=== PATIENT | male | born 1950 | race Hispanic/Latino ===

== ENCOUNTER → 2018-03-07 | Outpatient (CLI) | payer MEDICARE, MEDICAID ==
[2018-03-07 22:16] LABS: BILIRUBIN,URINE NEGATIVE (NEGATIVE); UROBILINOGEN,URINE NORMAL (NEGATIVE)
[2018-03-07 22:19] LABS: APPEARANCE,URINE CLEAR (CLEAR); UA COLOR YELLOW (YELLOW)
== END | disposition home or self-care (01) ==
LOC: NPLAB 21:53
PROVIDERS: ATTEND Internal Medicine
DX: N39.0 Urinary tract infection, site not specified (principal)
CPT/HCPCS: 81002

== ENCOUNTER 2018-06-05 22:00 | Emergency (ER) | payer MEDICARE, MEDICAID ==
[~2018-06-05] VITALS: Ht 165.1 cm; Wt 61.2 kg
[2018-06-05] MEDS ORDERED: BOOSTRIX TDAP IM ONE ×2 (22:56→23:00)
--- NOTE | 2018-06-05 22:59 | ER.PDOC ---
General Chief Complaint: Requesting Medical Care Stated Complaint: FALL Time seen by MD: 22:56 Source: EMS, EMS notes reviewed Exam Limitations: clinical condition History of Present Illness Initial Comments Laceration to forehead S/P fall. Patient has dementia. [facility] Severity: moderate Injuries/Pain Location: head, face Context: Unknown Loss of Consciousness: Unsure Associated Symptoms: denies symptoms Past Medical History Medical History: other (Dementia) Review of Systems Constitutional: no symptoms reported Respiratory: no symptoms reported Cardiovascular: no symptoms reported Gastrointestinal: no symptoms reported Genitourinary: no symptoms reported Skin: see HPI All Other Systems: Reviewed and Negative Physical Exam General Appearance: No Apparent Distress, WD/WN Head: Lacerations (forehead) Ears, Nose, Mouth, Throat: Hearing Grossly Normal, Other (contusion nose) Neck: Non-Tender, Normal Alignment, Nexus criteria neg, Normal Inspection Cardiovascular/Respiratory: Regular Rate, Rhythm, No M/R/G, Normal Peripheral Pulses, No JVD, Normal Breath Sounds, No Respiratory Distress Gastrointestinal: Normal Bowel Sounds, No Organomegaly, No Pulsatile Mass, Non Tender, Soft Back: Normal Inspection, No CVA Tenderness, No Vertebral Tenderness Extremities: No Evidence of Injury, Normal Range of Motion, Non-Tender, No Pedal Edema Neurologic/Psychiatric: food quality tester II-XII NML as Tested Skin: Normal Color Reshma Coma Score Best Eye Response: (4) Open Spontaneously Best Verbal Response: (5) Oriented Best Motor Response: (6) Obeys Commands ED LACERATION WOUND REPAIR # of Wounds/Lacerations Presen: 2 Wound Location & Length (Requi: Forehead Wound Length (cm): 5 Wound cleaned: betadine Anesthesia: 1% Lidocaine Volume Anesthetic (ccs): 10 Wound's Depth, Shape: irregular Irrigated w/ Saline (ccs): 40 Wound Repaired With: sutures Suture Size/Type: 5:0, ethilon Suture Style: interupted Number of Sutures: 8 Sterile Dressing Applied?: Yes Results/Orders Results/Orders Laboratory Tests Test 06/05/18 22:40 06/05/18 22:56 Urine Collection Type VOID Urine Color YELLOW (YELLOW) Urine Appearance CLEAR (CLEAR) Urine Bilirubin NEGATIVE MG/DL (NEGATIVE) Urine Ketones NEGATIVE (NEGATIVE) Urine Specific [place] 1.010 (1.005-1.035) Urine pH 6 (5.0-6.0) Urine Protein NEGATIVE (NEGATIVE) Urine Urobilinogen NORMAL (NEGATIVE) Urine Nitrate NEGATIVE (NEGATAIVE) Urine Leukocyte Esterase NEGATIVE (NEGATIVE) Urine Blood 50 2+ (NEGATIVE) Urine RBC 0-2 RBC/HPF (NONE SEEN) Urine WBC 0-2 WBC/HPF (0-2) Urine Squamous Epithelial Cells RARE #/HPF (FEW) Urine Bacteria NONE SEEN (NONE SEEN) Urine Glucose NORMAL (NEGATIVE) White Blood Count 7.6 10^3/uL (4.5-11.0) Red Blood Count 3.65 10^6/uL (4.50-5.90) Hemoglobin 11.5 g/dL (13.9-16.3) Hematocrit 33.9 % (37.0-53.0) Mean Corpuscular Volume 92.9 fL (78-100) Mean Corpuscular Hemoglobin 31.5 pg (26-34) Mean Corpuscular Hemoglobin Concent 33.9 g/dL (33-37) Red Cell Distribution Width 13.5 % (11.5-14.5) Platelet Count 287 10^3/uL (150-400) Mean Platelet Volume 9.3 fL (7.8-11.0) Neutrophils (%) (Auto) 58.6 % (41.0-85.0) Lymphocytes (%) (Auto) 26.5 % (24.0-44.0) Monocytes (%) (Auto) 11.2 % (5.0-12.0) Neutrophils # (Auto) 4.5 10^3/uL (1.8-7.7) Lymphocytes # (Auto) 2.0 10^3/uL (1.0-4.8) Monocytes # (Auto) 0.9 10^3/uL (0.3-0.8) Absolute Immature Granulocyte (auto 0.01 10^3 u/L (0-2) Eosinophils % 3.2 % (0.0-5.0) Basophils % 0.4 % (0.0-0.2) Basophils # 0.0 10^3/uL (0.0-0.1) Eosinophil Count 0.2 10^3/uL (0.0-0.2) Sodium Level 135 mmol/L (132-145) Potassium Level 3.9 mmol/L (3.6-5.2) Chloride Level 101.0 mmol/L (96-109) Carbon Dioxide Level 27.8 mmol/L (20.0-32) Anion Gap 10.1 Blood Urea Nitrogen 14 mg/dL (7-18) Creatinine 1.05 mg/dL (0.59-1.40) Estimated GFR () 84.5 (>/=60) BUN/Creatinine Ratio 13.0 Glucose Level 128 mg/dL (70-110) Calcium Level 9.0 mg/dL (8.4-10.5) Total Bilirubin 0.2 mg/dL (0.2-1.0) Aspartate Amino Transf (AST/SGOT) 12 U/L (0-35) Alanine Aminotransferase (ALT/SGPT) 18 U/L (12-78) Alkaline Phosphatase 177 U/L (50-136) Total Creatine Kinase 56 U/L (39-308) Troponin I < 0.02 ng/mL (0.00-0.05) Total Protein 7.4 g/dL (6.4-8.2) Albumin 3.9 g/dL (3.4-5.0) Globulin 3.5 Percent Immature Gran (Cell Imm) 0.10 % (0.00-0.50) Progress Progress CT shows fracture of left nasal bone, nothing acute intracranially, No fracture of C spine. Departure Time of Disposition: 23:57 Disposition: 01 HOME, SELF-CARE Impression: Primary Impression: Laceration of head Additional Impressions: Nasal bones, closed fracture Facial contusion Fall Condition: Stable Referrals: RICHY PIERRE MD (PCP) PRIMARY CARE PROVIDER Additional Instructions: Apply Neosporin daily Keflex Remove sutures in 7 days at your PCP F/U with ENT next week Duration or Time Spent with Pa: 60 mins Problem Qualifiers Primary Impression: Laceration of head Encounter type: initial encounter Location of open wound of head: unspecified part of head Foreign body presence: without foreign body Qualified Codes: S01.91XA - Laceration without foreign body of unspecified part of head, initial encounter Additional Impressions: Nasal bones, closed fracture Encounter type: initial encounter Qualified Codes: S02.2XXA - Fracture of nasal bones, initial encounter for closed fracture Facial contusion Encounter type: initial encounter Qualified Codes: S00.83XA - Contusion of other part of head, initial encounter Fall Encounter type: initial encounter Qualified Codes: W19.XXXA - Unspecified fall, initial encounter GWENDOLYN,BABAK Henderson MD Jun 05, 2018 22:59
[2018-06-05 23:05] LABS: BASOPHIL % 0.4 % (0.0-0.2); EOSINOPHIL # 0.2 10^3/uL (0.0-0.2); EOSINOPHIL % 3.2 % (0.0-5.0); HEMOGLOBIN 11.5 g/dL (13.9-16.3); LYMPHOCYTES % 26.5 % (24.0-44.0); MEAN CELL HGB 31.5 pg (26-34); MEAN CELL HGB CONCENTRATION 33.9 g/dL (33-37); MEAN CORP VOLUME 92.9 fL (78-100); MEAN PLATELET VOLUME 9.3 fL (7.8-11.0); MONOCYTES # 0.9 10^3/uL (0.3-0.8); MONOCYTES % 11.2 % (5.0-12.0); NEUTROPHIL # 4.5 10^3/uL (1.8-7.7); NEUTROPHILS % 58.6 % (41.0-85.0); RED CELL DISTRIBUTION WIDTH 13.5 % (11.5-14.5); WHITE BLOOD CELL 7.6 10^3/uL (4.5-11.0)
[2018-06-05 23:17] LABS: APPEARANCE,URINE CLEAR (CLEAR); BILIRUBIN,URINE NEGATIVE (NEGATIVE); UA COLOR YELLOW (YELLOW); UROBILINOGEN,URINE NORMAL (NEGATIVE)
[2018-06-05] MEDS ORDERED: LIDOCAINE 1% VIAL ONE (23:23)
[2018-06-05 23:28] LABS: ALANINE AMINOTRANSFERASE(ML) 18 U/L (12-78); ALKALINE PHOSPHATASE 177 U/L (50-136); ASPARTATE AMINO TRANSFERASE 12 U/L (0-35); CARBON DIOXIDE 27.8 mmol/L (20.0-32); GLUCOSE 128 mg/dL (70-110)
--- NOTE | 2018-06-05 23:38 | DIREP ---
PROCEDURE: CT SPINE CERVICAL W/O COMPARISON:None. INDICATIONS:Pain S/P fall FINDINGS: Degenerative changes, especially C1-2. There is subchondral cyst formation, osteophyte, without significant pannus formation. No fractures identified. CERVICAL DISC LEVELS C2-C3:Disc degenerative change with disc protrusion. Midline sagittal diameter is 8 mm. C3-C4:Disc degenerative change with disc protrusion. There is disc height loss. Midline sagittal diameter 8 mm. Facet sclerosis and hypertrophy, with moderate right-sided neural foraminal narrowing C4-C5:Small broad-based disc bulge without significant stenosis. Moderate left sided facet sclerosis and hypertrophy C5-C6:Mild facet sclerosis and hypertrophy, left greater than right C6-C7:Normal. C7-T1:Normal. CONCLUSION:No acute fracture identified. Degenerative changes as above. There is disc protrusion, with moderate spinal stenosis at C2-3 and C3-4. This appears chronic. Mild neural foraminal narrowing narrowing as above Dictated by: Sky Jose MD on 06/05/2018 at 11:33 PM
--- NOTE | 2018-06-05 23:40 | DIREP ---
PROCEDURE:CT MAXILLOFACIAL W/O CONTRAST COMPARISON:None. INDICATIONS:Pain from falling TECHNIQUE:Axial CT images were created without intravenous contrast. Sagittal and coronal reformatted images are provided. FINDINGS: ORBITS:The globe is intact. No extraocular muscle entrapment is identified. No acute orbital wall fracture is identified. There is an old fracture of the medial wall.. FACIAL BONES:No fracture. NASAL BONES :Mildly displaced fractures involving the nasal bones, left greater than right. MANDIBLE:No fracture. SINUSES:No air fluid level is seen. No mucosal thickening. Surrounding bone structures are intact. SOFT TISSUES:Soft tissue swelling and laceration overlying the forehead CONCLUSION:Fracture of the left nasal bones, soft tissue injury overlying the forehead. Old fracture involving the medial wall of right orbit Dictated by: Sky Jose MD on 06/05/2018 at 11:36 PM
--- NOTE | 2018-06-05 23:42 | DIREP ---
PROCEDURE:CT HEAD OR BRAIN W/O CONTRAST COMPARISON:None. INDICATIONS:Pain S/P fall TECHNIQUE:CT images were created without intravenous contrast. FINDINGS: VENTRICLES:There is moderate prominence of the ventricles and cortical sulci consistent with age related involutional changes. CEREBRUM:Small foci of diminished attenuation in the supratentorial white matter consistent with mild leukoaraiosis. CEREBELLUM:Negative. BRAINSTEM:Negative. BASAL CISTERNS:Negative. HEMORRHAGE:No MASS LESION:No ACUTE INFARCT:No SKULL:Normal. SINUSES:Normal. OTHER:See separate report, the soft tissue swelling and laceration of the forehead CONCLUSION:No acute intracranial findings. Atrophy and white matter disease. Dictated by: Sky Jose MD on 06/05/2018 at 11:39 PM
--- NOTE | 2018-06-05 23:57 | NUR ---
[facility] Nargis Dutton from [facility] on phone, notified her of patient ready to be picked up due to discharge from the ED. 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 She will notify us when they leave their facility
--- NOTE | 2018-06-06 00:46 | NUR ---
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
--- NOTE | 2018-06-06 01:31 | NUR ---
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
--- NOTE | 2018-06-06 02:02 | NUR ---
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 Patient is in stable condition at this time.
[2018-06-06 02:09] VITALS: BP 137/76
--- NOTE | 2018-06-06 02:53 | PCM.EKG ---
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
== END 2018-06-06 00:48 | disposition home or self-care (01) ==
LOC: ER 22:00
DX: S02.2XXA Fracture of nasal bones, initial encounter for closed fracture (principal); S01.81XA Laceration without foreign body of other part of head, initial encounter; F03.90 Unspecified dementia, unspecified severity, without behavioral disturbance, psychotic disturbance, mood disturbance, and anxiety; W19.XXXA Unspecified fall, initial encounter; Y93.89 Activity, other specified; Y92.128 Other place in nursing home as the place of occurrence of the external cause; Y99.8 Other external cause status
CPT/HCPCS: 12013; 36415; 70450; 70486; 72125; 80053; 81000; 82550; 84484; 85025; 90471; 90715; 93005; 99284; J2001; 12011

== ENCOUNTER 2018-06-29 20:52 | Emergency (ER) | payer MEDICARE, MEDICAID ==
[2018-06-29 20:54] VITALS: BP 115/65
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
[2018-06-29 21:34] LABS: BASOPHIL % 0.3 % (0.0-0.2); EOSINOPHIL # 0.1 10^3/uL (0.0-0.2); EOSINOPHIL % 1.5 % (0.0-5.0); LYMPHOCYTES # 1.1 10^3/uL (1.0-4.8); LYMPHOCYTES % 13.4 % (24.0-44.0); MEAN CELL HGB 31.4 pg (26-34); MEAN CELL HGB CONCENTRATION 34.1 g/dL (33-37); MEAN CORP VOLUME 92.1 fL (78-100); MEAN PLATELET VOLUME 8.9 fL (7.8-11.0); MONOCYTES # 1.4 10^3/uL (0.3-0.8); MONOCYTES % 17.5 % (5.0-12.0); NEUTROPHIL # 5.3 10^3/uL (1.8-7.7); NEUTROPHILS % 66.9 % (41.0-85.0); RED CELL DISTRIBUTION WIDTH 13.6 % (11.5-14.5); WHITE BLOOD CELL 7.9 10^3/uL (4.5-11.0)
--- NOTE | 2018-06-29 21:45 | DIREP ---
PROCEDURE:CT HEAD WITHOUT CONTRAST TECHNIQUE:Axial cuts were obtained through the head, without intravenous contrast material. The images were viewed at brain and bone settings. COMPARISON:[facility], CT, CT HEAD BRAIN W/O CONTRAST, 06/05/2018, 11:10 PM. INDICATIONS:Fall, head lac FINDINGS: VENTRICLES:The ventricles and sulci are prominent consistent with age related atrophy. CEREBRUM:There is periventricular and deep white matter hypoattenuation most likely related to chronic small vessel ischemic changes. No hemorrhage is seen. There is no mass effect. If signs and symptoms continue follow up MRI may be beneficial as CT is not sensitive for acute/subacute stroke. CEREBELLUM:Negative. BRAINSTEM:Negative. BASAL CISTERNS:Negative. SKULL:Normal. SINUSES:Normal. OTHER:Soft tissue swelling is seen overlying the calvarium near the right paracentral apex. CONCLUSION: No acute intracranial hemorrhage or mass effect. Stable moderate to severe atrophy and chronic small vessel ischemic changes. Soft tissue swelling overlying the right paracentral calvarium near the apex. Dictated by: Tod Barrett MD on 06/29/2018 at 09:40 PM
[2018-06-29 21:50] VITALS: BP 113/55
[2018-06-29 21:59] LABS: CALCIUM 8.7 mg/dL (8.4-10.5); CARBON DIOXIDE 24.5 mmol/L (20.0-32)
--- NOTE | 2018-06-29 22:06 | NUR ---
DISCHARGE PATIENT READY FOR DISCHARGE. CALLED [facility] AND NO ANSWER.
--- NOTE | 2018-06-29 22:07 | NUR ---
DISCHARGE CALLED [facility] AGAIN AND NOTIFIED THAT PATIENT WILL BE DISCHARGED. THEY WILL ENGRAVING SUPERVISOR.
[2018-06-29 23:00] VITALS: BP 113/55
== END 2018-06-29 22:40 | disposition home or self-care (01) ==
LOC: EDBD 20:52 → ER 20:52
DX: S06.0X0A Concussion without loss of consciousness, initial encounter (principal); S01.01XA Laceration without foreign body of scalp, initial encounter; R79.1 Abnormal coagulation profile; W19.XXXA Unspecified fall, initial encounter; Y93.89 Activity, other specified; Y92.128 Other place in nursing home as the place of occurrence of the external cause; Y99.8 Other external cause status
CPT/HCPCS: 36415; 70450; 80053; 85025; 85610; 85730; 99285

== ENCOUNTER 2018-07-03 07:28 | Emergency (ER) | payer MEDICARE, MEDICAID ==
[~2018-07-03] VITALS: Ht 157.5 cm; Wt 61.2 kg
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
[2018-07-03 07:45] VITALS: BP 154/59
--- NOTE | 2018-07-03 07:45 | NUR ---
WOUND WOUND CLEANSED WITH NORMAL SALINE AND BETADINE CLOSED BY DR VIERA PER ASEPTIC TECHNIQUE WITH SORIN X7
[2018-07-03 08:05] LABS: BASOPHIL % 0.3 % (0.0-0.2); EOSINOPHIL # 0.1 10^3/uL (0.0-0.2); EOSINOPHIL % 1.6 % (0.0-5.0); HEMOGLOBIN 12.3 g/dL (13.9-16.3); LYMPHOCYTES # 1.2 10^3/uL (1.0-4.8); LYMPHOCYTES % 18.8 % (24.0-44.0); MEAN CELL HGB 31.9 pg (26-34); MEAN CELL HGB CONCENTRATION 34.6 g/dL (33-37); MEAN PLATELET VOLUME 8.8 fL (7.8-11.0); MONOCYTES # 0.6 10^3/uL (0.3-0.8); MONOCYTES % 9.2 % (5.0-12.0); NEUTROPHIL # 4.5 10^3/uL (1.8-7.7); NEUTROPHILS % 69.9 % (41.0-85.0); RED CELL DISTRIBUTION WIDTH 13.4 % (11.5-14.5); WHITE BLOOD CELL 6.4 10^3/uL (4.5-11.0)
--- NOTE | 2018-07-03 08:10 | NUR ---
CT PT TO AND FROM CT
--- NOTE | 2018-07-03 08:21 | DIREP ---
PROCEDURE:CT HEAD OR BRAIN W/O CONTRAST COMPARISON:[facility], CT, CT HEAD BRAIN W/O CONTRAST, 06/29/2018, 09:06 PM. INDICATIONS:Head injury TECHNIQUE:CT images were created without intravenous contrast. FINDINGS: VENTRICLES:There is moderate prominence of the ventricles and cortical sulci consistent with age related involutional changes. CEREBRUM:Moderate foci of diminished attenuation in the supratentorial white matter consistent with moderate leukoaraiosis. CEREBELLUM:Negative. BRAINSTEM:Negative. BASAL CISTERNS:Negative. HEMORRHAGE:No MASS LESION:No ACUTE INFARCT:No SKULL:Normal. SINUSES:Normal. OTHER:Significant soft tissue swelling and scalp hematoma about the posterior aspect of the high parietal bone centrally measuring approximately 5.7 cm in width and 1.0 cm thick. CONCLUSION:Large scalp hematoma posteriorly without visualized intracranial abnormality. Dictated by: Gadiel Granda DO on 07/03/2018 at 08:16 AM
[2018-07-03 08:22] LABS: CALCIUM 8.9 mg/dL (8.4-10.5); CARBON DIOXIDE 24.3 mmol/L (20.0-32)
--- NOTE | 2018-07-03 09:37 | DIREP ---
PROCEDURE:CT SOFT TISSUE NECK W/O COMPARISON:None. INDICATIONS:Fall TECHNIQUE:CT images were created without intravenous contrast material. Sagittal and coronal reconstructions are performed. FINDINGS: NASOPHARYNX:Normal. Fossae of Rosenmuller and torus tubarius are symmetric. ORAL CAVITY:Normal. No visible mass. OROPHARYNX:Normal. Faucial and lingual tonsils are symmetric. HYPOPHARYNX:Normal. No mass or other visible lesion. LARYNX:Normal. The vocal cords are symmetric and without mass. SINUSES:Normal. Limited views show no significant fluid or mucosal thickening. NECK GLANDS:Normal. The parotid, submandibular, and thyroid glands are unremarkable. LYMPH NODES:Normal. No pathological-appearing or enlarged lymph nodes. SKULL BASE:Normal. Foramina are symmetric without bony erosion. VASCULATURE:Normal. Limited views are unremarkable. BONES:Normal. No significant osseous lesions. OTHER:Normal. No additional imaging findings. CONCLUSION: 1. No visualized obstructive mass involving the airway. 2. No acute fracture. Dictated by: Gadiel Granda DO on 07/03/2018 at 09:32 AM
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
--- NOTE | 2018-07-03 10:04 | NUR ---
[facility] DR VIERA IS ON PHONE WITH [facility] ASKING IF THEY HAVE THE CAPABLITIY TO TREAT PT THERE
--- NOTE | 2018-07-03 10:10 | NUR ---
DR CAL VIERA ON PHONE WITH DR MCCALL
--- NOTE | 2018-07-03 10:37 | NUR ---
[facility] CALLED [facility], SPOKE TO KERVIN, FOR PT PHYSICIAN GENERAL INTERNAL MEDICINE. PER KERVIN, THEY HAVE THEIR VAN IN [place] ALREADY AND SOON IT IS BACK THEN THEY WILL SEND SOMEONE TO PICK PT UP
--- NOTE | 2018-07-03 11:20 | NUR ---
STATUS PT HIT CALL LIGHT AND STATED THAT HE DID NOT WANT TO BE HOOKED ONTO OUR MONITORS ANYMORE.
--- NOTE | 2018-07-03 12:12 | NUR ---
LUNCH LUNCH TRAY WAS BROUGHT TO PT
--- NOTE | 2018-07-03 13:11 | NUR ---
TRANSPORT PHONED [facility] SPOKE WITH KERVIN SHE STATED THE VAN SHOULD BE HERE IN ABOUT 20-30 MINUTES
[2018-07-03 13:43] VITALS: BP 154/59
== END 2018-07-03 13:30 | disposition home or self-care (01) ==
LOC: ER 07:28 → EDBD 07:28 → ER 13:30
DX: S02.82XA Fracture of other specified skull and facial bones, left side, initial encounter for closed fracture (principal); S01.01XA Laceration without foreign body of scalp, initial encounter; W50.0XXA Accidental hit or strike by another person, initial encounter; Y93.89 Activity, other specified; Y92.098 Other place in other non-institutional residence as the place of occurrence of the external cause; Y99.8 Other external cause status
CPT/HCPCS: 12002; 36415; 70450; 70486; 70490; 80053; 85025; 85610; 85730; 99285

== ENCOUNTER 2018-07-13 11:34 | Emergency (ER) | payer MEDICARE, MEDICAID ==
[~2018-07-13] VITALS: Ht 172.7 cm; Wt 68.0 kg
[2018-07-13 11:58] VITALS: BP 128/67
--- NOTE | 2018-07-13 12:12 | ER.PDOC ---
General Chief Complaint: Head Injury Stated Complaint: HEAD INJURY Time seen by MD: 12:10 Source: EMS, correction records Exam Limitations: clinical condition History of Present Illness Initial Comments Laceration to back of head from unwitnessed fall. Patient has had multiple similar episodes in the past. Occurred: just prior to arrival Where: correction Severity: moderate Injuries/Pain Location: head Context: Unknown Loss of Consciousness: No Loss of Consciousness Associated Symptoms: headache Allergies: Coded Allergies: No Known Allergies (Unverified , 06/06/18) Past Medical History Medical History: other (dementia) Social History Smoking: non-smoker Alcohol Use: none Drug Use: none Review of Systems Constitutional: no symptoms reported Ears, Nose, Mouth, Throat: no symptoms reported Respiratory: no symptoms reported Cardiovascular: no symptoms reported Gastrointestinal: no symptoms reported Skin: see HPI All Other Systems: Reviewed and Negative Physical Exam General Appearance: No Apparent Distress, WD/WN Head: Lacerations (posterior scalp) Ears, Nose, Mouth, Throat: Hearing Grossly Normal, No Evidence of ENT Injury, No Dental Injury Neck: Non-Tender, Normal Alignment, Nexus criteria neg, Normal Inspection Cardiovascular/Respiratory: Regular Rate, Rhythm, No M/R/G, Normal Peripheral Pulses, No JVD, Normal Breath Sounds, No Respiratory Distress Gastrointestinal: Normal Bowel Sounds, No Organomegaly, No Pulsatile Mass, Non Tender, Soft Back: Normal Inspection, No CVA Tenderness, No Vertebral Tenderness Extremities: No Evidence of Injury, Normal Range of Motion, Non-Tender, No Pedal Edema Neurologic/Psychiatric: manager case II-XII NML as Tested, No Motor/Sensory Deficits, Alert, Normal Mood/Affect, Oriented x 3 Skin: Normal Color Reshma Coma Score Best Eye Response: (4) Open Spontaneously Best Verbal Response: (5) Oriented Best Motor Response: (6) Obeys Commands ED LACERATION WOUND REPAIR # of Wounds/Lacerations Presen: 1 Wound Location & Length (Requi: head Wound Length (cm): 2 Wound's Depth, Shape: irregular Irrigated w/ Saline (ccs): 30 Wound Repaired With: liliam Results/Orders Results/Orders Laboratory Tests Test 07/13/18 12:50 White Blood Count 8.3 10^3/uL (4.5-11.0) Red Blood Count 4.14 10^6/uL (4.50-5.90) Hemoglobin 13.3 g/dL (13.9-16.3) Hematocrit 37.8 % (37.0-53.0) Mean Corpuscular Volume 91.3 fL (78-100) Mean Corpuscular Hemoglobin 32.1 pg (26-34) Mean Corpuscular Hemoglobin Concent 35.2 g/dL (33-37) Red Cell Distribution Width 13.5 % (11.5-14.5) Platelet Count 370 10^3/uL (150-400) Mean Platelet Volume 8.9 fL (7.8-11.0) Neutrophils (%) (Auto) 74.9 % (41.0-85.0) Lymphocytes (%) (Auto) 14.1 % (24.0-44.0) Monocytes (%) (Auto) 9.4 % (5.0-12.0) Neutrophils # (Auto) 6.2 10^3/uL (1.8-7.7) Lymphocytes # (Auto) 1.2 10^3/uL (1.0-4.8) Monocytes # (Auto) 0.8 10^3/uL (0.3-0.8) Absolute Immature Granulocyte (auto 0.01 10^3 u/L (0-2) Eosinophils % 1.3 % (0.0-5.0) Basophils % 0.2 % (0.0-0.2) Basophils # 0.0 10^3/uL (0.0-0.1) Eosinophil Count 0.1 10^3/uL (0.0-0.2) Sodium Level 135 mmol/L (132-145) Potassium Level 4.1 mmol/L (3.6-5.2) Chloride Level 100.0 mmol/L (96-109) Carbon Dioxide Level 24.8 mmol/L (20.0-32) Anion Gap 14.3 Blood Urea Nitrogen 16 mg/dL (7-18) Creatinine 0.86 mg/dL (0.59-1.40) Estimated GFR () 106.4 (>/=60) BUN/Creatinine Ratio 18.0 Glucose Level 143 mg/dL (70-110) Calcium Level 9.2 mg/dL (8.4-10.5) Total Bilirubin 0.2 mg/dL (0.2-1.0) Aspartate Amino Transf (AST/SGOT) 21 U/L (0-35) Alanine Aminotransferase (ALT/SGPT) 20 U/L (12-78) Alkaline Phosphatase 175 U/L (50-136) Troponin I < 0.02 ng/mL (0.00-0.05) Total Protein 8.3 g/dL (6.4-8.2) Albumin 4.0 g/dL (3.4-5.0) Globulin 4.3 Percent Immature Gran (Cell Imm) 0.10 % (0.00-0.50) Progress Progress No acute abnormalities on CT C- spine and head Departure Time of Disposition: 13:57 Disposition: 01 HOME, SELF-CARE Impression: Primary Impression: Head injury, acute Condition: Stable Patient Instructions: Head Injury, Adult, [id number] Referrals: RICHY PIERRE MD (PCP) PRIMARY CARE PROVIDER Additional Instructions: Keflex Tylenol Apply Neosporin to wound daily Remove liliam in 7 days Duration or Time Spent with Pa: 60 mins Problem Qualifiers Primary Impression: Head injury, acute Encounter type: initial encounter Qualified Codes: S09.90XA - Unspecified injury of head, initial encounter BABAK SNOW MD Jul 13, 2018 12:11
--- NOTE | 2018-07-13 12:17 | NUR ---
CT PT OUT OF ROOM TO RAD VIA STRETCHER.
[2018-07-13] MEDS ORDERED: BOOSTRIX TDAP IM ONE (12:30)
--- NOTE | 2018-07-13 12:33 | NUR ---
CT PT BACK IN ROOM VIA STRETCHER
[2018-07-13] MEDS ORDERED: TETANUS DIPHTHERIA TOXOIDS IM ONE (12:36)
--- NOTE | 2018-07-13 12:42 | PCM.EKG ---
[facility] Test Date: 2018-07-13 Test Time: 12:40:47 Pat Name: JB CANCHOLA Department: Patient ID: [facility]-[id number] Room: Gender: M Bit Tapper: NATHAN : 1950 Requested By: BABAK SNOW Order Number: [id number] Reading MD: Babak SNOW Measurements Intervals [place] Rate: 65 P: 66 MD: 190 QRS: 42 QRSD: 66 T: 45 QT: 396 QTc: 411 Interpretive Statements Normal sinus rhythm Nonspecific ST abnormality Abnormal ECG Compared to ECG 06/06/2018 00:15:34 ST (T wave) deviation now present Sinus bradycardia no longer present Electronically Signed On 07-14-2018 0:49:17 COIN TELLER by Babak SNOW Please click the below link to view image of tracing.
[2018-07-13 13:01] LABS: BASOPHIL % 0.2 % (0.0-0.2); EOSINOPHIL # 0.1 10^3/uL (0.0-0.2); EOSINOPHIL % 1.3 % (0.0-5.0); HEMOGLOBIN 13.3 g/dL (13.9-16.3); LYMPHOCYTES # 1.2 10^3/uL (1.0-4.8); LYMPHOCYTES % 14.1 % (24.0-44.0); MEAN CELL HGB 32.1 pg (26-34); MEAN CELL HGB CONCENTRATION 35.2 g/dL (33-37); MEAN CORP VOLUME 91.3 fL (78-100); MEAN PLATELET VOLUME 8.9 fL (7.8-11.0); MONOCYTES # 0.8 10^3/uL (0.3-0.8); MONOCYTES % 9.4 % (5.0-12.0); NEUTROPHIL # 6.2 10^3/uL (1.8-7.7); NEUTROPHILS % 74.9 % (41.0-85.0); RED CELL DISTRIBUTION WIDTH 13.5 % (11.5-14.5); WHITE BLOOD CELL 8.3 10^3/uL (4.5-11.0)
--- NOTE | 2018-07-13 13:09 | DIREP ---
PROCEDURE:CT HEAD WITHOUT CONTRAST TECHNIQUE:Axial cuts were obtained through the head, without intravenous contrast material. The images were viewed at brain and bone settings. COMPARISON:[facility], CT, CT HEAD BRAIN W/O CONTRAST, 07/03/2018, 08:01 AM. INDICATIONS:Pain S/P fall FINDINGS: VENTRICLES:Ventricles, sulci and cisterns are enlarged consistent with generalized atrophy. CEREBRUM:Symmetrically diminished attenuation in the deep white matter consistent with leukoaraiosis. CEREBELLUM:Normal. BRAINSTEM:Normal. SKULL:Previously seen parietal scalp hematoma has resolved. SINUSES:Normal. OTHER:Negative. CONCLUSION: 1. No acute abnormalities. 2. Previously seen parietal scalp hematoma has resolved. 3. Leukoaraiosis. 4. Generalized atrophy. Dictated by: Moose Chairez M.D. on 07/13/2018 at 01:02 PM
--- NOTE | 2018-07-13 13:14 | DIREP ---
PROCEDURE: CT SPINE CERVICAL W/O COMPARISON:None. INDICATIONS:Pain S/P fall FINDINGS: ALIGNMENT:Normal. VERTEBRAE:No fractures. Anterior osteophyte formation at C3-4, C5-6 and C6-7. PARASPINAL AREA:Arterial calcifications. OTHER:No additional findings. CERVICAL DISC LEVELS C2-C3:Disc narrowing with mild endplate irregularity. C3-C4:Disc narrowing with bilateral uncovertebral hypertrophy. C4-C5:Disc narrowing. C5-C6:Disc narrowing with mild uncovertebral hypertrophy. C6-C7:Normal. C7-T1:Normal. CONCLUSION: 1. No fractures. 2. Degenerative changes C2-3 through C5-6. Dictated by: Moose Chairez M.D. on 07/13/2018 at 01:08 PM
[2018-07-13 13:26] LABS: ALANINE AMINOTRANSFERASE(ML) 20 U/L (12-78); ALKALINE PHOSPHATASE 175 U/L (50-136); ASPARTATE AMINO TRANSFERASE 21 U/L (0-35); CALCIUM 9.2 mg/dL (8.4-10.5); CARBON DIOXIDE 24.8 mmol/L (20.0-32); GLUCOSE 143 mg/dL (70-110)
[2018-07-13] MEDS ORDERED: TRIPLE ANTIBIOTIC OINTMENT TP ONE (13:50)
[2018-07-13] MEDS ORDERED: TYLENOL #3 PO ONE (14:01)
[2018-07-13] MEDS ORDERED: TYLENOL #3 PO STA (14:01)
--- NOTE | 2018-07-13 14:07 | NUR ---
ADMINSTERED T # [address] JOHANSEN.
--- NOTE | 2018-07-13 14:14 | NUR ---
DISCHARGED Pt DISCAHRGED FROM ER, EDUCATED ON DISCHARGE PACKET Pt AND FAMILY MEMBER VERBALISED THE UNDERSTANDING.
[2018-07-13 14:18] VITALS: BP 143/70
[2018-07-13 14:22] VITALS: BP 143/70
== END 2018-07-13 14:14 | disposition home or self-care (01) ==
LOC: ER 11:34
DX: S01.01XA Laceration without foreign body of scalp, initial encounter (principal); W19.XXXA Unspecified fall, initial encounter; Y93.89 Activity, other specified; Y92.128 Other place in nursing home as the place of occurrence of the external cause; Y99.8 Other external cause status
CPT/HCPCS: 12001; 36415; 70450; 72125; 80053; 84484; 85025; 90471; 90714; 93005; 99284; J3490

== ENCOUNTER 2018-07-19 18:25 | Emergency (ER) | payer MEDICARE, MEDICAID ==
[~2018-07-19] VITALS: Ht 182.9 cm; Wt 68.0 kg
[2018-07-19 19:19] VITALS: BP 143/83
[2018-07-19 20:14] VITALS: BP 132/70
--- NOTE | 2018-07-19 20:30 | NUR ---
CT PATIENT RETURNED FROM CT.
--- NOTE | 2018-07-19 20:42 | DIREP ---
PROCEDURE:CT HEAD OR BRAIN W/O CONTRAST COMPARISON:[facility], CT, CT HEAD BRAIN W/O CONTRAST, 07/13/2018, 12:14 PM. INDICATIONS:head trauma TECHNIQUE:CT images were created without intravenous contrast. FINDINGS: VENTRICLES:There is moderate prominence of the ventricles and cortical sulci consistent with age related involutional changes. CEREBRUM:Moderate foci of diminished attenuation in the supratentorial white matter consistent with moderate leukoaraiosis. CEREBELLUM:Mild volume loss. BRAINSTEM:Negative. BASAL CISTERNS:Negative. HEMORRHAGE:No MASS LESION:No ACUTE INFARCT:No SKULL:No evidence of fracture. There are small hematoma seen involving the right frontal and left frontal scalp along with small hematoma seen along the posterior left high convexity scalp near the midline. Left posterior parietal scalp skin liliam are noted. SINUSES:Normal. OTHER:None CONCLUSION: Bilateral frontal and left the posterior parietal and high convexity scalp hematomas with skin liliam described above. No evidence of fracture. No evidence of acute intracranial hemorrhage. Moderate atrophy with moderate chronic small vessel ischemic change that appear similar to the prior study. Dictated by: Moreno Cantu MD on 07/19/2018 at 08:32 PM
[2018-07-19 21:20] VITALS: BP 133/60
--- NOTE | 2018-07-19 21:29 | ER.PDOC ---
General Chief Complaint: Trauma Stated Complaint: HEAD INJURY Time seen by MD: 20:00 Source: snf records, other ([facility] licensing representative) Exam Limitations: no limitations History of Present Illness Initial Comments Patient is 68 M with dementia and severe cognitive decline who has had multiple falls recently @ SNF presenting with another fall today with head injury. SNF licensing representative present with him and states patient is at his baseline mentation. No LOC. No neuro symptoms. Right frontal scalp hematoma present. No laceration, no bleeding. Dressing in place. Occurred: just prior to arrival Where: other (snf) Severity: mild Location: frontal Method of Injury: fell Allergies: Coded Allergies: No Known Allergies (Unverified , 06/06/18) Home Meds Discontinued Reported Medications Hydrocodone Bit/Acetaminophen (HYDROCODON-ACETAMINOPH 2.5-325) 1 Each Tablet, 1 EACH PO TID, TABLET 07/19/18 Spironolactone 25MG (ALDACTONE 25MG) 25 Mg Tablet, 1 TAB PO DAILY, #90 TAB 1 Refill 07/19/18 Olmesartan Medoxomil (BENICAR) 40 Mg Tablet, 1 TAB PO DAILY, #30 TAB 5 Refills 07/19/18 Past Medical History Medical History: GERD, hypertension, other (Dementia, seizure disorder) Surgical History: other (unknown) Social History Smoking: non-smoker Alcohol Use: none Drug Use: none Review of Systems Constitutional: no symptoms reported Eyes: no symptoms reported Ears, Nose, Mouth, Throat: no symptoms reported Respiratory: no symptoms reported Cardiovascular: no symptoms reported Gastrointestinal: no symptoms reported Genitourinary: no symptoms reported Musculoskeletal: no symptoms reported Skin: no symptoms reported Psychiatric/Neurological: no symptoms reported Endocrine: no symptoms reported Hematologic/Lymphatic: no symptoms reported Physical Exam General Appearance: Alert, No Apparent Distress Head: Ecchymosis, Swelling, Other (right frontal scalp hematoma, no active bleeding, no laceration, dressing in place) ENT: Nml external inspection, Pharynx nml Neck: non-tender, painless ROM Cardiovascular/Respiratory: Regular Rate, Rhythm, No M/R/G, Normal Peripheral Pulses, No JVD, Normal Breath Sounds, No Respiratory Distress Gastrointestinal: Normal Bowel Sounds, Non Tender Back: Normal Inspection, No CVA Tenderness, No Vertebral Tenderness Extremities: Normal Range of Motion, Non-Tender, Normal Inspection, No Pedal Edema NEURO/PSYCH: No response to commands (baseline mentation 2/2 severe cognitive dysfunction), Disoriented to person, Disoriented to place, Disoriented to time Cranial Nerves: Normal Hearing, Normal Speech, PERRL Motor/Sensory: No Motor Deficit, No Sensory Deficit Skin: Normal Color, Warm/Dry Reshma Coma Score Best Eye Response: (4) Open Spontaneously Best Verbal Response: (1) No Verbal Response Best Motor Response: (6) Obeys Commands EKG/XRAY/CT/US CT Comments: Bilateral frontal scalp hematomas, no acute intracranial pathology. No fx. Departure Time of Disposition: 21:30 Disposition: 03 DISCH/XFER TO SNF Impression: Primary Impression: Scalp hematoma Condition: Stable Referrals: RICHY PIERRE MD (PCP) PRIMARY CARE PROVIDER Comments No Cervical spine tenderness. Normal movement. No active bleeding. CT shows bilateral scalp hematomas. No acute intracranial pathology, no fx. Stable to d /c back to SNF. Facility requesting Keppra/Dilantin levels but not necessary. Patient can f/u with that manages seizure disorder for evaluation. Duration or Time Spent with Pa: 45 minutes YARELY MATIAS MD Jul 19, 2018 21:29
[2018-07-19] MEDS ORDERED: ZOFRAN ONE (21:58)
[2018-07-19 22:00] VITALS: BP 137/81
[2018-07-19 23:00] VITALS: BP 145/73
[2018-07-19] MEDS ORDERED: SPIR25TA PO (23:01)
[2018-07-19] MEDS ORDERED: OLME40TA12 PO (23:01)
[2018-07-19] MEDS ORDERED: HYDR-3109 PO (23:01)
[2018-07-19 23:15] VITALS: BP 145/73
== END 2018-07-19 22:10 ==
LOC: ER 18:25
DX: S00.03XA Contusion of scalp, initial encounter (principal); F03.90 Unspecified dementia, unspecified severity, without behavioral disturbance, psychotic disturbance, mood disturbance, and anxiety; G40.909 Epilepsy, unspecified, not intractable, without status epilepticus; I10 Essential (primary) hypertension; K21.9 Gastro-esophageal reflux disease without esophagitis; R29.6 Repeated falls; Z79.899 Other long term (current) drug therapy; W19.XXXA Unspecified fall, initial encounter; Y93.89 Activity, other specified; Y92.128 Other place in nursing home as the place of occurrence of the external cause; Y99.8 Other external cause status
CPT/HCPCS: 70450; 99285; J2405

== ENCOUNTER 2018-08-02 15:52 | Inpatient (IN) | payer MEDICARE, MEDICAID ==
[~2018-08-02] VITALS: Ht 172.7 cm; Wt 67.2 kg
[~2018-08-02 15:52] MED LIST: HYDR-3109 PO; OLME40TA12 PO; SPIR25TA PO
[2018-08-02 15:58] VITALS: BP 139/66
--- NOTE | 2018-08-02 16:01 | ER.PDOC ---
General Chief Complaint: Trauma Stated Complaint: FALL Time seen by MD: 16:00 Source: patient Exam Limitations: no limitations History of Present Illness Occurred: just prior to arrival Where: home Severity: mild Context: fall Associated Symptoms: No Loss of Consciousness Allergies: Coded Allergies: No Known Allergies (Unverified , 06/06/18) Past Medical History Medical History: high cholesterol Surgical History: other Social History Smoking: non-smoker Alcohol Use: none Drug Use: none Reviewed Nursing Reviewed: Vital Signs, Abn. Noted Review of Systems All Other Systems: Reviewed and Negative Physical Exam General Appearance: alert, no distress 1 - LAC Neck: non-tender, painless ROM Eyes: lids nml, conjunctivae nml, PERRL, EOMI ENT: nml external exam, pharynx nml, no injury to teeth, no injury lips, no injury gums Neuro/Psych: oriented x 3, sensation nml, motor nml, CN's nml as tested, mood/ affect nml Respiratory: chest non-tender, no resp distress CVS: heart sounds nml, reg. rate & rhythm Abdomen: non-tender Course Duration or Total Time Spent w: 45 minutes Vitals & review Data Vital Sign - Last 24 Hours 07/19/18 08/02/18 08/02/18 08/02/18 23:15 15:53 15:53 15:58 Temp 98.0 98.4 98.0 98.4 Pulse 61 82 80 Resp 18 18 18 Pulse Ox 99 O2 Delivery Room Air 08/02/18 15:58 Temp 98.4 98.4 Pulse 80 Resp 18 B/P (MAP) 139/66 (90) Pulse Ox 99 O2 Delivery Room Air Sepsis Infection Criteria Pres: None O2 Sat by Pulse Oximetry: 99 Departure Time of Disposition: 16:33 Disposition: 01 HOME, SELF-CARE Impression: Primary Impression: Forehead laceration Condition: Improved Referrals: RICHY PIERRE MD (PCP) PRIMARY CARE PROVIDER Duration or Time Spent with Pa: 1 HR CAROL STANFORD MD Aug 02, 2018 16:01
[2018-08-02] MEDS ORDERED: BOOSTRIX TDAP IM ONE (16:30)
--- NOTE | 2018-08-02 16:36 | DIREP ---
PROCEDURE:CT HEAD OR BRAIN W/O CONTRAST COMPARISON:[facility], CT, CT HEAD BRAIN W/O CONTRAST, 07/19/2018, 08:18 PM. INDICATIONS:FALL AND HIT HEAD, FRONTAL LAC TECHNIQUE:CT images were created without intravenous contrast. FINDINGS: VENTRICLES:There is moderate prominence of the ventricles and cortical sulci consistent with age related involutional changes. CEREBRUM:Moderate foci of diminished attenuation in the supratentorial white matter consistent with moderate leukoaraiosis. CEREBELLUM:Negative. BRAINSTEM:Negative. BASAL CISTERNS:Negative. HEMORRHAGE:No MASS LESION:No ACUTE INFARCT:No SKULL:Normal. SINUSES:Normal. OTHER:Scalp thickening in the right frontal region as well as in the left frontal region and vertex. CONCLUSION:Chronic changes. Scalp thickening, including right anterior frontal laceration. No acute intracranial abnormality. No fracture. Otherwise, negative head CT. Dictated by: Milo Sandoval M.D. on 08/02/2018 at 04:29 PM
[2018-08-02] MEDS ORDERED: ATIVAN IV STA (17:19)
--- NOTE | 2018-08-02 17:30 | DIREP ---
PROCEDURE:CHEST 1 VIEW COMPARISON:None. INDICATIONS:FALL, CONFUSION FINDINGS: LUNGS/PLEURA:Subsegmental atelectasis is suspected in the left lung base. The inspiratory excursion appears shallow VASCULATURE:Normal. Unremarkable pulmonary vasculature. CARDIAC:Normal. No cardiac silhouette abnormality or cardiomegaly. MEDIASTINUM:Atheromatous calcifications of the aortic arch BONES:Normal. No fracture or visible bony lesion. OTHER:Negative. CONCLUSION:Probable subsegmental atelectasis the left lung base Dictated by: Gee Carrera M.D. on 08/02/2018 at 05:26 PM
[2018-08-02 17:38] LABS: BASOPHIL % 0.3 % (0.0-0.2); EOSINOPHIL # 0.2 10^3/uL (0.0-0.2); EOSINOPHIL % 1.8 % (0.0-5.0); HEMOGLOBIN 12.7 g/dL (13.9-16.3); LYMPHOCYTES # 1.8 10^3/uL (1.0-4.8); LYMPHOCYTES % 18.4 % (24.0-44.0); MEAN CELL HGB 32.2 pg (26-34); MEAN CELL HGB CONCENTRATION 34.4 g/dL (33-37); MEAN CORP VOLUME 93.4 fL (78-100); MEAN PLATELET VOLUME 9.1 fL (7.8-11.0); MONOCYTES # 1.1 10^3/uL (0.3-0.8); MONOCYTES % 11.2 % (5.0-12.0); NEUTROPHIL # 6.8 10^3/uL (1.8-7.7); NEUTROPHILS % 68.2 % (41.0-85.0); RED CELL DISTRIBUTION WIDTH 14.3 % (11.5-14.5); WHITE BLOOD CELL 9.9 10^3/uL (4.5-11.0)
[2018-08-02] MEDS ORDERED: TETANUS DIPHTHERIA TOXOIDS IM ONE (17:40)
[2018-08-02] MEDS ORDERED: ATIVAN ONE (17:40)
--- NOTE | 2018-08-02 17:40 | NUR ---
TETANUS ADMINISTERED TO LEFT DELTOID BY Nicole SHAVER RN.
[2018-08-02] MEDS ORDERED: XYLOCAINE 2%-EPI 1:100,000 ONE (17:44)
[2018-08-02 18:02] LABS: CARBON DIOXIDE 22.7 mmol/L (20.0-32); GLUCOSE 141 mg/dL (70-110)
[2018-08-02 18:03] LABS: ALANINE AMINOTRANSFERASE(ML) 22 U/L (12-78); ALKALINE PHOSPHATASE 184 U/L (50-136); ASPARTATE AMINO TRANSFERASE 21 U/L (0-35); CALCIUM 8.7 mg/dL (8.4-10.5)
[2018-08-02 18:10] LABS: DILANTIN 49.3 ug/mL (10.0-20.0)
--- NOTE | 2018-08-02 18:28 | NUR ---
FLORENCIO DOCTOR FLORENCIO ACCEPTED THE PATIENT.
[2018-08-02 18:30] VITALS: BP 124/67
[2018-08-02] MEDS ORDERED: CEPHULAC PO STA (18:46)
[2018-08-02 19:00] VITALS: BP 106/64
--- NOTE | 2018-08-02 19:06 | PCM.EKG ---
[facility] Test Date: 2018-08-02 Test Time: 18:20:03 Pat Name: JB CANCHOLA Department: [id number] Room: 314 Gender: M Street Supervisor: : 1950 Requested By: VERNON SANTILLAN Order Number: [id number] Reading MD: Vernon Santillan Measurements Intervals [place] Rate: 78 P: 55 CA: 150 QRS: 33 QRSD: 86 T: 81 QT: 382 QTc: 435 Interpretive Statements Normal sinus rhythm Normal ECG Compared to ECG 07/13/2018 12:40:47 ST (T wave) deviation no longer present Electronically Signed On 08-07-2018 7:51:05 PLATE SHEAR OPERATOR by Vernon Santillan Please click the below link to view image of tracing.
[2018-08-02 20:00] VITALS: BP 112/70
--- NOTE | 2018-08-02 20:00 | NUR ---
STATUS PT STANDING A ROOM DOOR, CONFUSED. UNSTEADY GAIT. PT REDIRECTED BACK TO BED WITH MAX VERBAL CUES. PT COOPERTIVE. POSITIONED IN BED TO COMFORT. WARM BLANKETS APPLIED.
[2018-08-02] MEDS ORDERED: CEPHULAC ONE (20:48)
--- NOTE | 2018-08-02 20:56 | NUR ---
TRANSFER PT TO [facility] [address] ACCOMPANIED BY [employer] AND [employer]. PT COOPERATIVE THOUGH CONFUSED. NOTED LARGE LACERATION TO POSTERIOR SCALP. DR. NUÑEZ CLEANSED AREA AND APPLIED SORIN. RELINQUISH CARE.
--- NOTE | 2018-08-02 21:55 | NUR ---
PT ARRIVED ON FLOOR. PT GIVEN KAREN CARE PT WAS INCONTINENT OF URINE.
--- NOTE | 2018-08-02 21:57 | NUR ---
PT INCONTINENT, KAREN CARE GIVEN , GOWN CHANGE. PAD PLACED UNDER PT. PT CALM AT THIS TIME. REPOSITIONED IN BED.
--- NOTE | 2018-08-02 22:00 | NUR ---
DR. MATIAS AT BEDSIDE
--- NOTE | 2018-08-02 22:10 | NUR ---
NATE CHARGE NURSE PLACED 22G IV CATH IN RIGHT FOOT 1 STICK.
--- NOTE | 2018-08-02 22:27 | PCM.HP ---
History of Present Illness Reason for Visit: Fall History of Present Illness Patient is a 68 M with PMH of Dementia, Bipolar disorder presents from SNF with mechanical fall with 2 head lacerations. In ER, patient had CT head negative for CVA, fracture, or hemorrhage. CT just shows scalp lacerations. Patient has laceration of frontal scalp repaired with strips and occipital laceration repaired with liliam. Patient also had lab work from SNF and repeat in ER showing Dilantin toxicity. Patient is acutely altered and not able to provide hx. Only history obtained from medical records in chart. Patient likely has hx of Seizure disorder 2/2 Dilantin use but this cannot be confirmed. Patient was admitted for Dilantin toxicity. Patient has been started on IVF. 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 Psychiatric: Bipolar Past Surgical History: Other (surgical hx unknown) Past Social History Smoke: No Alcohol: none Drugs: None Lives: [facility] Travel Hx EBOLA RISK:Travel to/contact w: No Review of Systems Other Not able to complete ROS 2/2 patient mentation Allergies: Coded Allergies: No Known Allergies (Unverified , 06/06/18) VTE VTE Risk Score VTE Risk: Score 0-1 = Low Risk (Aggressive mobilization; early ambulation; no VTE prophylaxis required) Score 2: Moderate Risk (Intermittent/Pneumatic Compression Device OR Lovenox/Heparin/Coumadin) Score 3-4: High Risk (Intermittent/Pneumatic Compression Device AND Lovenox/Heparin/Coumadin) Score > or =5: Highest Risk (Intermittent/Pneumatic Compression Device AND Lovenox/Heparin/Coumadin) Exam Vital Signs Vital Signs Date Time Temp Pulse Resp B/P (MAP) Pulse Ox O2 Delivery O2 Flow Rate FiO2 08/02/18 15:58 98.4 80 18 139/66 (90) 99 Room Air 98.4 General Appearance: Cooperative, No acute distress, Other (AMS) HEENT: PERRLA, EOMI, Mucous membr. moist/pink, Other (Scalp lacerations of frontal scalp above right eye and occipital laceration repaired with liliam) Respiratory: Clear to auscultation, Normal air movement Cardiovascular: Regular rate, Normal S1, Normal S2, No murmurs Abdominal: Normal bowel sounds, Soft, No tenderness, Other (mildly distended) Extremities: No edema, Normal pulses, No tenderness/swelling Skin: No rash, No breakdown, Lesions Neuro: Normal tone, Sensation intact, Cranial nerves 3-12 NL Psych/Mental Status: Other (Patient alert, arousable, answers questions but response limited) Assessment/Plan Assessment/Plan Assessment/Plan Patient is a 68 M with PMH of Dementia, Bipolar disorder presents from SNF with mechanical fall with 2 head lacerations. Plan 1. AMS/Metabolic Encephalopathy: likely 2/2 Dilantin toxicity. Level is over 40. Will give IVF and supportive care. Patient alert, arousable, and protecting airway. Will recheck Dilantin level daily. PT/BIAS CUTTING MACHINE OPERATOR evaluations ordered. NPO currently. 2. Dementia: no medications reported. 3. Elevated ammonia levels: Patient has AMS and poor historian. No hx of Cirrhosis noted in medical records. Patient was given lactulose. 4. PPx: Vic, YARELY Viramontes MD Aug 02, 2018 22:27
[2018-08-02] MEDS: NS 1000ML 1,000 ML SCH (22:47)
[2018-08-02 22:59] VITALS: BP 145/84
[2018-08-03] VITALS (11 sets, daily range): BP systolic 121–157; BP diastolic 65–87
[2018-08-03] MEDS ORDERED: PANT40TA3 PO (01:34)
[2018-08-03] MEDS ORDERED: LEVE500T8 PO (01:34)
[2018-08-03] MEDS ORDERED: OXCA300T3 PO (01:34)
[2018-08-03] MEDS ORDERED: ACET325T12 PO (01:34)
[2018-08-03] MEDS ORDERED: ZIPR20CA2 PO (01:34)
[2018-08-03] MEDS ORDERED: PHEN100C PO (01:34)
[2018-08-03] MEDS ORDERED: MELA5TAB17 PO (01:34)
[2018-08-03] MEDS ORDERED: FOLI1TAB21 PO (01:34)
[2018-08-03] MEDS ORDERED: TAMS-14 PO (01:34)
[2018-08-03] MEDS ORDERED: AMLO10TA8 PO (01:34)
[2018-08-03] MEDS ORDERED: LORA2TAB PO (01:34)
--- NOTE | 2018-08-03 02:00 | NUR ---
PT LYING IN BED, RESTLESS AT THIS TIME. TAKING GOWN OFF, TAKING BRACELETS OFF.
--- NOTE | 2018-08-03 04:27 | NUR ---
PT CALM, SLEEPING AT THIS TIME . 1:1 SITTER IN ROOM. RAILS PADDED FOR SEIZURE PRECAUTIONS,. NO SEIZURES OR DISTRESS NOTED AT THIS TIME.
[2018-08-03 05:06] LABS: BASOPHIL % 0.3 % (0.0-0.2); EOSINOPHIL # 0.2 10^3/uL (0.0-0.2); EOSINOPHIL % 3.3 % (0.0-5.0); HEMOGLOBIN 11.2 g/dL (13.9-16.3); LYMPHOCYTES # 1.6 10^3/uL (1.0-4.8); MEAN CELL HGB 32.2 pg (26-34); MEAN CELL HGB CONCENTRATION 34.3 g/dL (33-37); MEAN PLATELET VOLUME 9.2 fL (7.8-11.0); MONOCYTES # 0.9 10^3/uL (0.3-0.8); MONOCYTES % 12.7 % (5.0-12.0); NEUTROPHIL # 4.3 10^3/uL (1.8-7.7); NEUTROPHILS % 60.7 % (41.0-85.0)
[2018-08-03 06:07] LABS: CALCIUM 8.2 mg/dL (8.4-10.5); CARBON DIOXIDE 23.8 mmol/L (20.0-32); DILANTIN 37.1 ug/mL (10.0-20.0)
--- NOTE | 2018-08-03 07:30 | NUR ---
EPISODE OF INCONTINENCE NOTED. ASSISTED PT TO BATHROOM WITH X1 ASSISTANCE. GAIT UNSTEADY. REDIRECTED TO TO BATHROOM. ASSISTED PT BACK TO BED. UNABLE TO STATE WHEN HE NEEDS TO URINATE. KAREN CARE PROVIDED. PAD CHANGED ON BED. NO S/S OF DISTRESS NOTED AT THIS TIME. PT REMAINS ON SEIZURE PRECAUTIONS. RAILS PADDED. ASSESSMENT COMPLETED CHARTED. MULTIPLE SKIN ISSUES NOTED. SEE CHART FOR WOUND PICTURES TAKEN PRIOR SHIFT. PT A/O X1. FOLLOWS COMMANDS AFTER MULTIPLE ATTEMPTS TO REDIRECT.
[2018-08-03] MEDS: NS 1000ML 1,000 ML SCH (07:41)
[2018-08-03] MEDS ORDERED: CEPHULAC PO SCH (09:00)
[2018-08-03] MEDS ORDERED: PEPCID IV SCH (09:00)
--- NOTE | 2018-08-03 09:28 | PRM.PN ---
Subjective Subjective Date: Aug 03, 2018 Time: 09:18 Subjective Patient more alert today. Labs reviewed. Pending GLASS INSERTER/PT eval. No complaints. RN able to obtain more hx from facility and medication list since yesterday. VTE VTE Risk Total Score: 2 VTE Risk Score VTE Risk: Score 0-1 = Low Risk (Aggressive mobilization; early ambulation; no VTE prophylaxis required) Score 2: Moderate Risk (Intermittent/Pneumatic Compression Device OR Lovenox/Heparin/Coumadin) Score 3-4: High Risk (Intermittent/Pneumatic Compression Device AND Lovenox/Heparin/Coumadin) Score > or =5: Highest Risk (Intermittent/Pneumatic Compression Device AND Lovenox/Heparin/Coumadin) Review of Systems Allergies: Coded Allergies: No Known Allergies (Unverified , 06/06/18) Scheduled Amlodipine Besylate (Amlodipine Besylate), 1 TAB PO DAILY, (Reported) Folic Acid (Folic Acid), 1 MG PO DAILY24, (Reported) Levetiracetam (Levetiracetam), 1,000 MG PO BID, (Reported) Melatonin (Melatonin), 1 MG PO HS, (Reported) Oxcarbazepine (Trileptal), 300 MG PO BID, (Reported) Pantoprazole Sodium (Protonix), 40 MG PO DAILY24, (Reported) Phenytoin Sodium Extended (Dilantin), 200 MG PO BID, (Reported) Tamsulosin Hcl (Flomax), 0.4 MG PO HS, (Reported) Ziprasidone Hcl (Geodon), 20 MG PO BID, (Reported) Scheduled PRN Acetaminophen (Tylenol), 650 MG PO Q6 PRN for PAIN, (Reported) Lorazepam (Lorazepam), 1 MG PO PRN PRN for ANXIETY, (Reported) Objective Vitals and I/O Vital Sign - Last 24 Hours 08/02/18 08/02/18 08/02/18 08/02/18 15:53 15:53 15:58 15:58 Temp 98.0 98.4 98.4 98.0 98.4 98.4 Pulse 82 80 80 Resp 18 18 B/P (MAP) 139/66 (90) Pulse Ox 99 99 O2 Delivery Room Air Room Air 08/02/18 08/02/18 08/02/18 08/02/18 18:30 18:30 19:00 19:00 Pulse 96 114 Resp 18 22 22 18 B/P (MAP) 124/67 (86) 106/64 (78) Pulse Ox 92 96 O2 Delivery Room Air Room Air 08/02/18 08/02/18 08/02/18 08/03/18 20:00 20:00 22:59 00:54 Temp 98.6 98.6 Pulse 100 75 Resp 20 18 16 B/P (MAP) 112/70 (84) 145/84 (104) Pulse Ox 96 99 O2 Delivery Room Air Room Air Room Air 08/03/18 08/03/18 08/03/18 08/03/18 01:52 02:01 04:24 05:04 Temp 98.5 98.5 98.5 98.5 98.5 Pulse 79 79 69 Resp 18 18 18 B/P (MAP) 155/83 (107) 150/76 (100) Pulse Ox 97 97 95 O2 Delivery Room Air Room Air Room Air Room Air 08/03/18 08/03/18 08/03/18 05:38 08:09 08:11 Temp 98.8 98.8 Pulse 72 Resp 18 B/P (MAP) 144/78 (100) Pulse Ox 100 O2 Delivery Room Air Room Air Room Air Intake and Output 08/02/18 08/02/18 08/03/18 15:01 23:01 07:01 Intake Total 1000 ml Balance 1000 ml General: Alert, Cooperative, No acute distress, Other (AMS) HEENT: PERRLA, EOMI, Mucous membr. moist/pink, Other (Scalp lacerations of frontal scalp above right eye and occipital laceration repaired with liliam) Neck: Supple, No JVD Lungs: Clear to auscultation, Normal air movement Heart: Regular rate, Normal S1, Normal S2, No murmurs Abdomen: Normal bowel sounds, Soft, No tenderness, Other (mildly distended) Extremities: No edema, Normal pulses, No tenderness/swelling Skin: No rashes, No breakdown, No significant lesion Neuro: Strength at 5/5 X4 ext, Normal tone, Sensation intact, Cranial nerves 3- 12 NL Psych/Mental Status: Other (Patient alert, arousable, answers questions but response limited) All Results(Lab/Rad) Laboratory Tests Test 08/02/18 17:35 2/9/19 04:45 White Blood Count 9.9 10^3/uL 7.0 10^3/uL Red Blood Count 3.95 10^6/uL 3.48 10^6/uL Hemoglobin 12.7 g/dL 11.2 g/dL Hematocrit 36.9 % 32.7 % Mean Corpuscular Volume 93.4 fL 94.0 fL Mean Corpuscular Hemoglobin 32.2 pg 32.2 pg Mean Corpuscular Hemoglobin Concent 34.4 g/dL 34.3 g/dL Red Cell Distribution Width 14.3 % 14.0 % Platelet Count 321 10^3/uL 294 10^3/uL Mean Platelet Volume 9.1 fL 9.2 fL Neutrophils (%) (Auto) 68.2 % 60.7 % Lymphocytes (%) (Auto) 18.4 % 23.0 % Monocytes (%) (Auto) 11.2 % 12.7 % Neutrophils # (Auto) 6.8 10^3/uL 4.3 10^3/uL Lymphocytes # (Auto) 1.8 10^3/uL 1.6 10^3/uL Monocytes # (Auto) 1.1 10^3/uL 0.9 10^3/uL Absolute Immature Granulocyte (auto 0.01 10^3 u/L 0 10^3 u/L Eosinophils % 1.8 % 3.3 % Basophils % 0.3 % 0.3 % Basophils # 0.0 10^3/uL 0.0 10^3/uL Eosinophil Count 0.2 10^3/uL 0.2 10^3/uL Prothrombin Time 10.8 SEC Prothrombin Time INR (Non-Therap) 1.1 Activated Partial Thromboplast Time 23.2 SEC D-Dimer 3.54 mg/L Sodium Level 138 mmol/L 141 mmol/L Potassium Level 3.5 mmol/L 3.3 mmol/L Chloride Level 103.0 mmol/L 107.0 mmol/L Carbon Dioxide Level 22.7 mmol/L 23.8 mmol/L Anion Gap 15.8 13.5 Blood Urea Nitrogen 15 mg/dL 13 mg/dL Creatinine 1.10 mg/dL 0.78 mg/dL Estimated GFR () 80.1 119.1 BUN/Creatinine Ratio 13.0 16.0 Glucose Level 141 mg/dL 126 mg/dL Calcium Level 8.7 mg/dL 8.2 mg/dL Total Bilirubin 0.3 mg/dL 0.4 mg/dL Aspartate Amino Transf (AST/SGOT) 21 U/L 18 U/L Alanine Aminotransferase (ALT/SGPT) 22 U/L 19 U/L Alkaline Phosphatase 184 U/L 147 U/L Ammonia 39 umol/L Total Creatine Kinase 209 U/L Troponin I < 0.02 ng/mL Pro-B-Type Natriuretic Peptide 162 pg/mL Total Protein 8.3 g/dL 7.1 g/dL Albumin 4.2 g/dL 3.4 g/dL Globulin 4.1 3.7 Phenytoin (Dilantin) Level 49.3 ug/mL 37.1 ug/mL Percent Immature Gran (Cell Imm) 0.10 % 0.00 % Helicobacter pylori Screen NEGATIVE Current Medications Medications (Trade) Dose Ordered Sig/Marie Route PRN Reason Start Time Stop Time Status Last Admin Dose Admin Lorazepam (Ativan) 1 mg STAT STAT IV 08/02/18 17:19 08/02/18 17:20 DC 08/02/18 19:00 Lorazepam (Ativan) 2 mg STK-MED ONCE .ROUTE 08/02/18 17:40 08/02/18 17:44 DC Lidocaine/ Epinephrine (Xylocaine 2%-Epi 1:100,000) 20 ml STK-MED ONCE .ROUTE 08/02/18 17:44 08/02/18 17:48 DC Sodium Chloride 1,000 ml @ 100 mls/hr Q10H IV 08/02/18 19:00 09/01/18 18:59 08/03/18 07:41 Lactulose (Cephulac) 20 gm DAILY PO 08/03/18 09:00 09/02/18 08:59 08/03/18 09:11 Lactulose (Cephulac) 20 gm STAT STAT PO 08/02/18 18:46 08/02/18 20:16 DC 08/02/18 20:54 Lactulose (Cephulac) 20 gm STK-MED ONCE .ROUTE 08/02/18 20:48 08/02/18 20:52 DC Famotidine (Pepcid) 20 mg BID IV 08/03/18 09:00 09/02/18 08:59 08/03/18 09:10 Course Sepsis Screening Results: Posi: NEGATIVE Sepsis Qualifier/Stage: NO DEFINITE RISK Duration or Total Time Spent w: 1 HR Vitals & review Data Vital Sign - Last 24 Hours 07/19/18 08/02/18 08/02/18 08/02/18 23:15 15:53 15:53 15:58 Temp 98.0 98.4 98.0 98.4 Pulse 61 82 80 Resp 18 18 18 Pulse Ox 99 O2 Delivery Room Air 08/02/18 15:58 Temp 98.4 98.4 Pulse 80 Resp 18 B/P (MAP) 139/66 (90) Pulse Ox 99 O2 Delivery Room Air Sepsis Infection Criteria Pres: None LEVEL 1 SEPSIS INFECTION CRITE: None/Not assessed LEVEL 2-SIRS (LIST ALL THAT AP: None/Not assessed Cardiovascular Evidence: Not Assessed or None Hematologic Evidence: None/Not assessed Hepatic Evidence: None/Not assessed Metabolic Evidence: None/Not assessed Neurological Evidence: Altered Mental Status Respiratory Evidence: None/Not assessed Renal Evidence: None/Not assessed O2 Sat by Pulse Oximetry: 100 Assessment/Plan Assessment/Plan Assessment/Plan Patient is a 68 M with PMH of Dementia, Bipolar disorder presents from SNF with mechanical fall with 2 head lacerations. Plan 1. AMS/Metabolic Encephalopathy: 2/2 Dilantin toxicity. Level has decreased with IVF. We will check daily and monitor neuro status. Patient is more alert today. No neuro deficits currently. He is moving all extremities and CN 2-12 intact. Pending GLASS INSERTER/PT evaluation. 2. Dementia: restarted medications for Seizure Disorder/Bipolar Disorder. 3. Elevated ammonia levels: Cont Lactulose 4. PPx: Pepcid, SCDs 5. Seizure Disorder: f/u with physician outpatient for Dilantin dosing. Will restart Keppra, Trileptal, and other home medications. 6. Bipolar Disorder: restart Geodon. 7. HTN: cont Norvasc 8. BPH: cont Flomax YARELY MATIAS MD Aug 03, 2018 09:28
[2018-08-03] MEDS ORDERED: NS 1000ML/KCL 20MEQ 1,000 ML IV SCH (09:30)
[2018-08-03] MEDS ORDERED: PROTONIX PO SCH (09:30)
[2018-08-03] MEDS ORDERED: FOLIC ACID PO SCH (09:30)
[2018-08-03] MEDS ORDERED: TYLENOL PO PRN (09:30)
--- NOTE | 2018-08-03 10:30 | NUR ---
PADS SATURATED IN URINE. ATTEMPTED TO ASSIST PT TO BATHROOM. PT ANXIOUS AND THREATENING. STATES HE DOES NOT NEED ANY HELP. THIS NURSE ESCORTED PT TO BATHROOM WITH STANDBY ASSISTANCE. URINATED ON FLOOR. BM NOTED. ATTEMPTED TO ASSIST WITH KAREN CARE. PT AGITATED AND STATES HE DID NOT HAVE A BM. THIS NURSE SHOWED PT THE BM ON GOWN. REFUSED ASSISTANCE FROM STAFF TO PROVIDE KAREN CARE. WIPES GIVEN TO PT TO PROVIDE OWN KAREN CARE. PERINEAL AREA C/D/I AT THIS TIME. ASSISTED BACK TO BED WITH STANDBY ASSISTANCE. NEW GOWN PROVIDED AND NEW PADS PLACED ON BED. REORIENTED PT TO UNIT AND EXPLAINED REASON FOR HOSPITALIZATION. PT STATES "JUST WAIT UNTIL I GET MY EDITOR MANAGING NEWSPAPER" PT NOW LAYING IN BED ASLEEP. RESP EVEN AND NON LABORED. NO S/S OF DISTRESS NOTED AT THIS TIME
--- NOTE | 2018-08-03 12:44 | NUR ---
NOTIFIED DR MATIAS OF TEMP OF 100.0
--- NOTE | 2018-08-03 12:48 | NUR ---
NEW ORDERS RECEIVED PER DR MATIAS TO [facility] FOR FLU
--- NOTE | 2018-08-03 12:55 | NUR ---
ATTEMPTED TO GET PT OUT OF BED AND IN CHAIR WITH PHYSICAL THERAPY. PT ASSISTED OUT OF BED WITH ASSISTANCE AND INDEPENDENTLY AMBULATED TO SINK WITH STANDBY ASSISTANCE. WASHED HANDS. ATTEMPTED TO ORIENT PT TO CHAIR. REFUSED TO SIT IN CHAIR AND STATED HE WANTED TO GO BACK TO SLEEP. EDUCATED PT ON IMPORTANCE OF SITTING UP IN CHAIR A FEW TIMES A DAY. PT CONTINUED TO REFUSE AND GOT BACK INTO BED. SCDS REAPPLIED
--- NOTE | 2018-08-03 13:20 | NUR ---
PT IN BED ASLEEP. RESPIRATIONS EVEN AND NON LABORED. LUNGS CTAB. NO S/S OF DISTRESS NOTED AT THIS TIME.
--- NOTE | 2018-08-03 14:38 | NUR ---
PT HAD MEDIUM BM. WHEN ASKED IF THIS NURSE COULD PERFORM PERICARE, PATIENT STATED "I NEED TO GO TAKE A SHOWER". THIS NURSE INFORMED PATIENT THAT THIS NURSE NEEDED TO GET SUPPLIES AND PATIENT HAD TO BE DETACHED FROM SCDS AND IV. PATIENT DENIED NEEDING HELP AND ATTEMPTED TO GET OUT OF BED BEFORE THIS NURSE COULD DETACH PATIENT FROM IV AND SCDS. DETACHED PATIENT FROM SCDS AND IV. PATIENT TRANSFERRED HIMSELF OUT OF BED AND TO BATHROOM WITH STANDBY ASSISTANCE REFUSING HELP FROM STAFF. GAIT UNSTEADY. PATIENT BEGAN TAKING SHOWER CHAIR OUT OF SHOWER. THIS NURSE PLACED SHOWER CHAIR BACK IN SHOWER AND EXPLAINED TO PATIENT THAT HE IS A HIGH FALL RISK AND REQUIRES ASSISTANCE WITH A SHOWER CHAIR AND ASSISTANCE FROM STAFF. PATIENT SHOWERED WITH ASSISTANCE FROM STAFF. AGITATED AND CONFUSED. ASSISTED PATIENT OUT OF SHOWER AND TO BED. REATTACHED SCDS AND IV. PATIENT NOW LYING IN BED AWAKE. RESPIRATIONS EVEN AND NON LABORED. PATIENT APPEARS TO BE CALM AT THIS TIME.
--- NOTE | 2018-08-03 15:40 | NUR ---
PATIENT IN ROOM AGITATED ASKING STAFF FOR HIS PANTS. STAFF EXPLAINED THAT HIS PANTS ARE SOILED. OFFERED PATIENT SURGICAL SCRUBS. PATIENT DONNED SURGICAL SCRUBS AND CONTINUED REQUESTING FOR STAFF TO GIVE HIM HIS PANTS. AFTER REORIENTING PATIENT MULTIPLE TIMES, PATIENT SATISFIED WITH SURGICAL SCRUBS. PATIENT SITTING IN CHAIR AT BEDSIDE EATING SANDWICH AND CHIPS OFFERED BY STAFF. NO DIFFICULTIES NOTED WITH CHEWING OR SWALLOWING. PATIENT APPEARS CALM NOW AT THIS TIME.
--- NOTE | 2018-08-03 16:31 | NUR ---
NOTIFIED DR MATIAS OF [facility] OF 101.3
--- NOTE | 2018-08-03 17:10 | NUR ---
PATIENT REMOVED IV TO R FOOT. APPLIED COTTON BALL AND BANDAID. NEW 22 GAUGE IV INITIATED TO L FOOT. ASYMPTOMATIC INTACT AND PATENT WITH IV FLUIDS INFUSING.
--- NOTE | 2018-08-03 17:29 | NUR ---
CODE STROKE PATIENT SITTING IN CHAIR. ATTEMPTED TO ASSIST PATIENT TO BATHROOM WITH X2 ASSISTANCE. DIFFICULTIES NOTED WHEN ATTEMPTING TO STAND UP. PUPILS UNRESPONSIVE AT 3MM. PATIENT RIGID AND ONLY RESPONSIVE TO PAIN. NO RESPONSE GIVEN BY PATIENT WHEN ASKED QUESTIONS. ASSISTED PATIENT BACK TO CHAIR. NOTIFIED DR MATIAS OF POSSIBLE SEIZURE ACTIVITY. DR MATIAS STATED TO INITIATE A CODE STROKE. CODE STROKE INITIATED AT THIS TIME. PATIENT HAS AN NIH SCORE OF 5
--- NOTE | 2018-08-03 17:35 | NUR ---
RADIOLOGY AT BEDSIDE
--- NOTE | 2018-08-03 17:40 | NUR ---
PATIENT IN RADIOLOGY FOR CT AT THIS TIME WITH NURSE AT SIDE
[2018-08-03] MEDS ORDERED: ROCEPHIN ONE ×2 (17:41→18:34)
[2018-08-03] MEDS ORDERED: VANCOMYCIN HCL 1 GM ONE (17:41)
[2018-08-03] MEDS ORDERED: NS 100ML 100 ML IV ONE ×3 (17:41→18:41)
[2018-08-03] MEDS ORDERED: NS 250ML 250 ML IV ONE ×2 (17:41→17:42)
--- NOTE | 2018-08-03 17:49 | NUR ---
TRANSFERRED PATIENT BACK TO ROOM
--- NOTE | 2018-08-03 17:52 | NUR ---
LAB AT BEDSIDE
--- NOTE | 2018-08-03 17:59 | DIREP ---
PROCEDURE:CT HEAD WITHOUT CONTRAST TECHNIQUE:Axial cuts were obtained through the head, without intravenous contrast material. The images were viewed at brain and bone settings. COMPARISON:[facility], CT, CT HEAD BRAIN W/O CONTRAST, 08/02/2018, 04:03 PM. INDICATIONS:possible stroke FINDINGS: VENTRICLES:Ventricles, sulci and cisterns enlarged consistent with generalized atrophy. CEREBRUM:Symmetrically diminished attenuation in the deep white matter consistent with leukoaraiosis. CEREBELLUM:Normal. BRAINSTEM:Normal. SKULL:Small scalp hematoma in the forehead with small laceration. Smaller bilateral scalp hematomas series 2, images 17 and 19. Giltner to the parieto-occipital scalp. SINUSES:Normal. OTHER:Negative. CONCLUSION: 1. No new abnormalities as compared to previous study. 2. Frontal scalp hematoma with small laceration. There are also smaller bilateral scalp hematomas. Giltner to the parieto-occipital scalp. 3. Generalized atrophy. 4. Leukoaraiosis. Dictated by: Moose Chairez M.D. on 08/03/2018 at 05:53 PM
[2018-08-03] MEDS ORDERED: VANCOMYCIN HCL 1 GM in NS 250ML 250 ML IV STA (18:06)
[2018-08-03] MEDS ORDERED: ROCEPHIN 1,000 MG in NS 100ML 100 ML IV STA (18:06)
--- NOTE | 2018-08-03 18:16 | PCM.EKG ---
[facility] Test Date: 2018-08-03 Test Time: 18:13:01 Pat Name: JB CANCHOLA Department: Room: 314 A Gender: M Hide And Skin Classer: : [id number] Requested By: YARELY MATIAS Order Number: [id number] Reading MD: Sarath Nayak Measurements Intervals Liberal Rate: 91 P: 51 OR: 146 QRS: 26 QRSD: 80 T: 66 QT: 372 QTc: 457 Interpretive Statements Normal sinus rhythm Normal ECG Compared to ECG 07/13/2018 12:40:47 No significant changes. Electronically Signed On 08-04-2018 15:55:27 HEAD START TEACHER by Sarath Nayak Please click the below link to view image of tracing.
--- NOTE | 2018-08-03 18:25 | PRM.DC ---
Discharge Summary Date of Discharge: Aug 03, 2018 Time of Request to Discharge: 18:10 Reason for Visit: Fall, Seizure Disorder, AMS Hospital Course Patient is a 68 M PMH of Dementia, Seizure disorder, Bipolar Disorder admitted from SNF with fall and head lacerations and Dilantin Toxicity. Patient has had recurrent falls. CT head negative in ER. Dilantin level rechecked in ER and was greater than 45. Patient was admitted for monitoring for Dilantin toxicity. He was started on IVF. Patient has baseline cognitive dysfunction per SNF after receiving further history. Patient restarted on home medications today but Dilantin hled. Patient had no focal neuro deficits on admission and on rounds this AM was more alert. He was answering questions and had no focal deficits this AM. I was paged by RN this afternoon and patient had low grade temp. We were pending UA. I ordered blood cx and CXR. Patient then had higher fever over 101 and acute change in mental status with possible seizure like activity reported by RN. Code Stroke called and patient rushed to CT. Patient is in and out of responsiveness but does open eyes and answers questions intermittently. Patient has been combative today and with hx of seizure disorder, AMS, and CT pending I discussed with anesthesia and feel risk of performing LP is too great. Seizure activity is contraindication. Decision made to transfer to higher acuity of care facility. Initial call made to [facility] and they were not able to accept patient during first conversation with hospitalist. I then tried [facility] and they immediately accepted patient and had available bed. I checked out patient to Dr. Bhat who is the hospitalist concierge receptionist tonight. I discussed the contraindication for LP and started IV abx. Dr. Bhat requested that I start abx immediately with Vancomycin, Rocephin being priority with Keppra and IV acyclovir being lower priority. After discussion with hospitalist and transfer paperwork being completed. CT head returned negative for intracranial pathology. Patient did become more alert, he is answering questions appropriately. General: Alert, mild distress HEENT: Other (lacerations to frontal scalp and occipital scalp) Neck: Supple, No JVD Lungs: Clear to auscultation, Normal air movement Heart: Regular rate, Normal S1, Normal S2, No murmurs Abdomen: Normal bowel sounds, Soft, No tenderness, Other (mild distension) Extremities: Normal pulses, No tenderness/swelling Skin: Other (head lacerations frontal/occipital scalp) Neuro: Other (fluctuating from responsive to unresponsive. He is moving all extremities and CN 2-12 intact. He is answering questions.) Scheduled Amlodipine Besylate (Amlodipine Besylate), 1 TAB PO DAILY, (Reported) Folic Acid (Folic Acid), 1 MG PO DAILY24, (Reported) Levetiracetam (Levetiracetam), 1,000 MG PO BID, (Reported) Melatonin (Melatonin), 1 MG PO HS, (Reported) Oxcarbazepine (Trileptal), 300 MG PO BID, (Reported) Pantoprazole Sodium (Protonix), 40 MG PO DAILY24, (Reported) Phenytoin Sodium Extended (Dilantin), 200 MG PO BID, (Reported) Tamsulosin Hcl (Flomax), 0.4 MG PO HS, (Reported) Ziprasidone Hcl (Geodon), 20 MG PO BID, (Reported) Scheduled PRN Acetaminophen (Tylenol), 650 MG PO Q6 PRN for PAIN, (Reported) Lorazepam (Lorazepam), 1 MG PO PRN PRN for ANXIETY, (Reported) Sepsis Evaluation @ Discharge Vital Sign - Last 24 Hours 07/19/18 08/02/18 08/02/18 08/02/18 23:15 15:53 15:53 15:58 Temp 98.0 98.4 98.0 98.4 Pulse 61 82 80 Resp 18 18 18 Pulse Ox 99 O2 Delivery Room Air 08/02/18 15:58 Temp 98.4 98.4 Pulse 80 Resp 18 B/P (MAP) 139/66 (90) Pulse Ox 99 O2 Delivery Room Air Course Sepsis Screening Results: Posi: POSITIVE Sepsis Qualifier/Stage: SEPSIS RISK Duration or Total Time Spent w: 1 HR Vitals & review Data Vital Sign - Last 24 Hours 07/19/18 08/02/18 08/02/18 08/02/18 23:15 15:53 15:53 15:58 Temp 98.0 98.4 98.0 98.4 Pulse 61 82 80 Resp 18 18 18 Pulse Ox 99 O2 Delivery Room Air 08/02/18 15:58 Temp 98.4 98.4 Pulse 80 Resp 18 B/P (MAP) 139/66 (90) Pulse Ox 99 O2 Delivery Room Air Sepsis Infection Criteria Pres: Suspected Infection LEVEL 1 SEPSIS INFECTION CRITE: Fever/Chills LEVEL 2-SIRS (LIST ALL THAT AP: Temp>101 Cardiovascular Evidence: Not Assessed or None Hematologic Evidence: None/Not assessed Hepatic Evidence: None/Not assessed Metabolic Evidence: None/Not assessed Neurological Evidence: Altered Mental Status Respiratory Evidence: None/Not assessed Renal Evidence: None/Not assessed O2 Sat by Pulse Oximetry: 100 Plan Discharge Date: Aug 03, 2018 Dicharge DX: Metabolic encephalopathy, Seizure Disorder, Sepsis, Dilantin toxicity Discharge Disposition: Stable Plan d/c to [facility] hospital care to be assumed by staff/physicians @ [facility] YARELY MATIAS MD Aug 03, 2018 18:25
[2018-08-03 18:30] LABS: BASOPHIL % 0.2 % (0.0-0.2); EOSINOPHIL % 0.2 % (0.0-5.0); HEMOGLOBIN 11.2 g/dL (13.9-16.3); LYMPHOCYTES # 0.4 10^3/uL (1.0-4.8); LYMPHOCYTES % 2.8 % (24.0-44.0); MEAN CELL HGB 32.2 pg (26-34); MEAN CELL HGB CONCENTRATION 34.4 g/dL (33-37); MEAN CORP VOLUME 93.7 fL (78-100); MEAN PLATELET VOLUME 9.5 fL (7.8-11.0); MONOCYTES # 1.5 10^3/uL (0.3-0.8); MONOCYTES % 11.9 % (5.0-12.0); NEUTROPHIL # 10.9 10^3/uL (1.8-7.7); NEUTROPHILS % 84.7 % (41.0-85.0); RED CELL DISTRIBUTION WIDTH 14.1 % (11.5-14.5); WHITE BLOOD CELL 12.8 10^3/uL (4.5-11.0)
[2018-08-03] MEDS ORDERED: ROCEPHIN 1,000 MG in NS 100ML 100 ML IV SCH (18:30)
--- NOTE | 2018-08-03 18:30 | NUR ---
EMS ARRIVED TO UNIT. REPORT GIVEN TO EMS
[2018-08-03] MEDS ORDERED: KEPPRA PO STA (18:36)
[2018-08-03] MEDS ORDERED: KEPPRA IV STA (18:36)
[2018-08-03 18:50] LABS: ALANINE AMINOTRANSFERASE(ML) 27 U/L (12-78); ALKALINE PHOSPHATASE 178 U/L (50-136); ASPARTATE AMINO TRANSFERASE 27 U/L (0-35); CALCIUM 7.2 mg/dL (8.4-10.5); CARBON DIOXIDE 17.9 mmol/L (20.0-32)
[2018-08-03 18:51] LABS: GLUCOSE 425 mg/dL (70-110)
--- NOTE | 2018-08-03 18:54 | NUR ---
PATIENT TRANSPORTED OFF OF UNIT BY EMS VIA STRETCHER. BP 121/65 HR 87 02SAT 96% ON RA. TEMP 100.3
--- NOTE | 2018-08-03 19:18 | NUR ---
REPORT CALLED TO [facility] ON THE CCU UNIT
[2018-08-03 19:51] LABS: ANISOCYTOSIS 1+ (NEGATIVE); LYMPHOCYTE 2 % (25-36); MONOCYTE 5 % (3-9); SEGMENTED NEUTROPHILS 93 % (31-76)
[2018-08-03 19:52] LABS: TOXIC GRANULATION 1+ (NEGATIVE)
--- NOTE | 2018-08-03 20:50 | DIREP ---
PROCEDURE:CHEST 1 VIEW COMPARISON:[facility], CR, XRAY CHEST SINGLE VW, 08/02/2018, 04:29 PM. INDICATIONS:shortness of breath FINDINGS: LUNGS/PLEURA:No significant pulmonary parenchymal abnormalities. No effusions. Improved aeration in the left base as compared to previous study. VASCULATURE:Normal. Unremarkable pulmonary vasculature. CARDIAC:Normal. No cardiac silhouette abnormality or cardiomegaly. MEDIASTINUM:Calcification in the aortic arch. BONES:Normal. No fracture or visible bony lesion. OTHER:Negative. CONCLUSION:No acute cardiopulmonary abnormalities. Dictated by: Moose Chairez M.D. on 08/03/2018 at 08:45 PM
[2018-08-03] MEDS ORDERED: FLOMAX PO SCH (21:00)
[2018-08-03] MEDS ORDERED: KEPPRA PO SCH (21:00)
[2018-08-03] MEDS ORDERED: TRILEPTAL PO SCH (21:00)
[2018-08-03] MEDS ORDERED: GEODON PO SCH (21:00)
[2018-08-04] MEDS ORDERED: NORVASC PO SCH (09:00)
== END 2018-08-03 18:50 | disposition short-term general hospital (02) | DRG 871 ==
LOC: EDBD 15:52 → ER 15:52 → MS 18:30 → EDPENDDISDT 08-03 20:56
PROVIDERS: ADMIT Family Medicine; ATTEND Family Medicine
PROC: 0HQ0XZZ Repair Scalp Skin, External Approach (ICD-10-PCS; principal; 2018-08-02)
DX: A41.9 Sepsis, unspecified organism (principal); G92 Toxic encephalopathy; F03.90 Unspecified dementia, unspecified severity, without behavioral disturbance, psychotic disturbance, mood disturbance, and anxiety; E78.00 Pure hypercholesterolemia, unspecified; F31.9 Bipolar disorder, unspecified; G40.909 Epilepsy, unspecified, not intractable, without status epilepticus; S01.01XA Laceration without foreign body of scalp, initial encounter; S01.81XA Laceration without foreign body of other part of head, initial encounter; I10 Essential (primary) hypertension; N40.0 Benign prostatic hyperplasia without lower urinary tract symptoms; T42.0X5A Adverse effect of hydantoin derivatives, initial encounter; W18.30XA Fall on same level, unspecified, initial encounter; Y93.89 Activity, other specified; Y92.89 Other specified places as the place of occurrence of the external cause; Y99.8 Other external cause status
CPT/HCPCS: 36415; 70450; 71045; 80053; 80185; 82140; 82550; 83880; 84484; 85025; 85379; 85610; 85730; 86677; 87040; 87804; 90714; 93005; 97161; 99285; G0378; J0696; J2060; J3490; J7030; J7050; J1953

== ENCOUNTER 2018-12-14 10:27 | Emergency (ER) | payer MEDICARE, MEDICAID ==
[~2018-12-14] VITALS: Ht 172.7 cm; Wt 67.2 kg
[~2018-12-14 10:27] MED LIST changes: +ACET325T12 PO; +AMLO10TA8 PO; +FOLI1TAB21 PO; +LEVE500T8 PO; +LORA2TAB PO; +MELA5TAB17 PO; +OXCA300T3 PO; +PANT40TA3 PO; +PHEN100C PO; +TAMS-14 PO; +ZIPR20CA2 PO
--- NOTE | 2018-12-14 10:27 | NUR ---
ARRIVAL PT ARRIVED VIA STRETCHER BY [facility] TO ER 2 C/O FALL THIS AM WITH LACERATION. SMALL, APPROXIMATE 0.5CM LACERATION TO RIGHT BACK SIDE OF HEAD. NO ACUTE DISTRESS NOTED. EDP NOTIFIED OF PT ARRIVAL.
--- NOTE | 2018-12-14 11:00 | NUR ---
STATUS PT COMBATIVE AND UNCOOPERATIVE WITH CONTINUOUS MINING MACHINE COAL MINER AND RT ATTEMPTING TO DRAW LABS AND PERFORM EKG. EDP NOTIFIED.
[2018-12-14] MEDS ORDERED: ATIVAN IM STA (11:02)
[2018-12-14] MEDS ORDERED: BENADRYL IM STA (11:02)
[2018-12-14] MEDS ORDERED: HALDOL IM STA (11:02)
[2018-12-14 11:05] VITALS: BP 136/77
[2018-12-14] MEDS ORDERED: BENADRYL ONE (11:09)
[2018-12-14] MEDS ORDERED: ATIVAN ONE (11:10)
[2018-12-14] MEDS ORDERED: HALDOL ONE (11:10)
[2018-12-14 12:00] VITALS: BP 137/66
--- NOTE | 2018-12-14 12:10 | PCM.EKG ---
[facility] Test Date: 2018-12-14 Test Time: 12:11:09 Pat Name: JB CANCHOLA Department: Patient ID: [facility]-[id number] Room: Gender: M Vice President Of Procurement: : 1950 Requested By: VERNON SANTILLAN Order Number: [id number] Reading MD: Vernon Santillan Measurements Intervals [place] Rate: 65 P: 65 [place]: 176 QRS: 35 QRSD: 94 T: 64 QT: 430 QTc: 447 Interpretive Statements Normal sinus rhythm Normal ECG Compared to ECG 08/03/2018 18:13:01 No significant changes Electronically Signed On 12-15-2018 17:59:35 CDT by Vernon Santillan Please click the below link to view image of tracing.
[2018-12-14 12:12] LABS: BASOPHIL % 0.3 % (0.0-0.2); EOSINOPHIL # 0.1 10^3/uL (0.0-0.2); EOSINOPHIL % 2.4 % (0.0-5.0); HEMOGLOBIN 12.1 g/dL (13.9-16.3); LYMPHOCYTES # 1.2 10^3/uL (1.0-4.8); LYMPHOCYTES % 19.7 % (24.0-44.0); MEAN CELL HGB CONCENTRATION 35.2 g/dL (33-37); MONOCYTES # 0.6 10^3/uL (0.3-0.8); MONOCYTES % 9.9 % (5.0-12.0); NEUTROPHIL # 3.9 10^3/uL (1.8-7.7); NEUTROPHILS % 67.5 % (41.0-85.0); WHITE BLOOD CELL 5.8 10^3/uL (4.5-11.0)
[2018-12-14 12:33] LABS: ALANINE AMINOTRANSFERASE(ML) 24 U/L (12-78); ALKALINE PHOSPHATASE 144 U/L (50-136); ASPARTATE AMINO TRANSFERASE 19 U/L (0-35); CALCIUM 8.8 mg/dL (8.4-10.5); CARBON DIOXIDE 26.7 mmol/L (20.0-32); GLUCOSE 255 mg/dL (70-110)
--- NOTE | 2018-12-14 12:51 | DIREP ---
PROCEDURE:CHEST 1 VIEW COMPARISON:[facility], CR, XRAY CHEST SINGLE VW, 08/03/2018, 05:33 PM. [facility], CR, XRAY CHEST SINGLE VW, 08/02/2018, 04:29 PM. INDICATIONS:SOMNOLENCE, WEAKNESS, FALLS FINDINGS: LUNGS/PLEURA:Stable left basilar atelectasis. No new consolidation or pleural effusion. VASCULATURE:Normal. Unremarkable pulmonary vasculature. CARDIAC:Normal. No cardiac silhouette abnormality or cardiomegaly. MEDIASTINUM:Calcification in the aortic arch. BONES:Normal. No fracture or visible bony lesion. OTHER:Negative. CONCLUSION:Stable left basilar atelectasis. No new consolidation or pleural effusion. Dictated by: Tod Barrett MD on 12/14/2018 at 12:48 PM
[2018-12-14 13:00] VITALS: BP 147/77
--- NOTE | 2018-12-14 13:02 | DIREP ---
PROCEDURE:CT HEAD WITHOUT CONTRAST TECHNIQUE:Axial cuts were obtained through the head, without intravenous contrast material. The images were viewed at brain and bone settings. The study is somewhat limited by motion. COMPARISON:[facility], CT, CT HEAD BRAIN W/O CONTRAST, 08/03/2018, 05:36 PM. INDICATIONS:FALLS, SOMNOLENCE FINDINGS: VENTRICLES:There is moderate generalized prominence of the ventricles, sulci, and cisterns. There is no hydrocephalus. CEREBRUM:There is moderate patchy low density in the periventricular white matter of both cerebral hemispheres. There is no CT evidence of mass, hemorrhage, or acute infarct. CEREBELLUM:Normal. BRAINSTEM:Normal. SKULL:Normal. SINUSES:Normal. OTHER:Negative. CONCLUSION: 1. Examination is somewhat limited by motion artifact. 2. Moderate generalized atrophy. 3. Moderate chronic white matter ischemic change. No significant change from prior study. 4. No evidence of intracranial hemorrhage or fracture. Dictated by: Moreno Cantu MD on 12/14/2018 at 12:59 PM
--- NOTE | 2018-12-14 13:15 | ER.PDOC ---
General Chief Complaint: Head Injury Stated Complaint: FALL Time seen by MD: 13:33 Source: patient, RN/MD, EMS, alf records Exam Limitations: clinical condition History of Present Illness Where: home Context: fall Associated Symptoms: No Loss of Consciousness Allergies: Coded Allergies: No Known Allergies (Unverified , 06/06/18) Home Meds Reported Medications Acetaminophen (TYLENOL) 325 Mg Tablet, 650 MG PO Q6 PRN for PAIN, TABLET 08/03/18 Ziprasidone Hcl (GEODON) 20 Mg Capsule, 20 MG PO BID, CAPSULE 08/03/18 Oxcarbazepine (TRILEPTAL) 300 Mg Tablet, 300 MG PO BID, TABLET 08/03/18 Levetiracetam (LEVETIRACETAM) 500 Mg Tablet, 1000 MG PO BID, TABLET 08/03/18 Phenytoin Sodium Extended (DILANTIN) 100 Mg Capsule, 200 MG PO BID, CAPSULE 08/03/18 Pantoprazole Sodium (PROTONIX) 40 Mg Tablet.dr, 40 MG PO DAILY24 08/03/18 Melatonin (MELATONIN) 5 Mg Tablet, 1 MG PO HS, TABLET 08/03/18 Lorazepam (LORAZEPAM) 2 Mg Tablet, 1 MG PO PRN PRN for ANXIETY, TABLET 08/03/18 Folic Acid (FOLIC ACID) 1 Mg Tablet, 1 MG PO DAILY24, TABLET 08/03/18 Tamsulosin Hcl (FLOMAX) 0.4 Mg Cap.er.24h, 0.4 MG PO HS, CAPSULE 08/03/18 Amlodipine Besylate (AMLODIPINE BESYLATE) 10 Mg Tablet, 1 TAB PO DAILY, #30 TAB 5 Refills 08/03/18 Past Medical History Medical History: high cholesterol Surgical History: other Social History Smoking: non-smoker Alcohol Use: none Drug Use: none Reviewed Nursing Reviewed: Vital Signs, Abn. Noted Review of Systems All Other Systems: Reviewed and Negative Physical Exam General Appearance: no distress, lethargic 1 - LAC 1 - LAC Neck: non-tender, painless ROM Eyes: lids nml, conjunctivae nml, PERRL, EOMI ENT: nml external exam, pharynx nml, no injury to teeth, no injury lips, no injury gums Neuro/Psych: sensation nml, motor nml, CN's nml as tested, mood/affect nml, disoriented to person, disoriented to place, disoriented to time Respiratory: chest non-tender, no resp distress CVS: heart sounds nml, reg. rate & rhythm Abdomen: non-tender Skin: intact, nml palp ED LACERATION WOUND REPAIR Wound Length (cm): 1 Wound cleaned: betadine Distal NVT: neuro intact Wound's Depth, Shape: superficial, linear Wound Repaired With: liliam Results/Orders Results/Orders Orders - CAROL STANFORD MD Cbc With Auto Diff (12/14/18 10:44) Comprehensive Metabolic Panel (12/14/18 10:44) Creatine Kinase (12/14/18 10:44) PT (12/14/18 10:44) Partial Thromboplastin Time. (12/14/18 10:44) Xr Chest 1v (12/14/18 10:44) Ct Head Wo Contrast (12/14/18 10:44) Urinalysis (12/14/18 10:44) Ekg-Routine (12/14/18 10:44) Troponin I (12/14/18 10:44) Dilantin (12/14/18 10:51) Haloperidol Lactate (Haldol) (12/14/18 11:02) Diphenhydramine Hcl (Benadryl) (12/14/18 11:02) Lorazepam (Ativan) (12/14/18 11:02) Diphenhydramine Hcl (Benadryl) (12/14/18 11:09) Haloperidol Lactate (Haldol) (12/14/18 11:10) Lorazepam (Ativan) (12/14/18 11:10) Alcohol(Ml) (12/14/18 12:57) Vital Signs Date Time Temp Pulse Resp B/P (MAP) Pulse Ox O2 Delivery O2 Flow Rate FiO2 12/14/18 11:05 16 12/14/18 11:05 98.2 73 16 136/77 (96) 99 Nasal Canula 98.2 12/14/18 10:27 98.2 73 16 98.2 12/14/18 10:27 98.2 73 16 99 Nasal Canula 98.2 Administered Medications Medications (Trade) Dose Ordered Sig/Marie Route PRN Reason Start Time Stop Time Status Last Admin Dose Admin Diphenhydramine HCl (Benadryl) 25 mg STAT STAT IM 12/14/18 11:02 12/14/18 11:04 DC 12/14/18 11:20 25 MG Haloperidol Lactate (Haldol) 5 mg STAT STAT IM 12/14/18 11:02 12/14/18 11:04 DC 12/14/18 11:20 5 MG Lorazepam (Ativan) 1 mg STAT STAT IM 12/14/18 11:02 12/14/18 11:04 DC 12/14/18 11:20 1 MG Laboratory Tests Test 12/14/18 12:10 White Blood Count 5.8 10^3/uL (4.5-11.0) Red Blood Count 3.78 10^6/uL (4.50-5.90) L Hemoglobin 12.1 g/dL (13.9-16.3) L Hematocrit 34.4 % (37.0-53.0) L Mean Corpuscular Volume 91.0 fL (78-100) Mean Corpuscular Hemoglobin 32.0 pg (26-34) Mean Corpuscular Hemoglobin Concent 35.2 g/dL (33-37) Red Cell Distribution Width 14.0 % (11.5-14.5) Platelet Count 328 10^3/uL (150-400) Mean Platelet Volume 9.0 fL (7.8-11.0) Neutrophils (%) (Auto) 67.5 % (41.0-85.0) Lymphocytes (%) (Auto) 19.7 % (24.0-44.0) L Monocytes (%) (Auto) 9.9 % (5.0-12.0) Neutrophils # (Auto) 3.9 10^3/uL (1.8-7.7) Lymphocytes # (Auto) 1.2 10^3/uL (1.0-4.8) Monocytes # (Auto) 0.6 10^3/uL (0.3-0.8) Absolute Immature Granulocyte (auto 0.01 10^3 u/L (0-2) Immature Granulocytes % 0.20 % (0.00-0.50) Eosinophils % 2.4 % (0.0-5.0) Basophils % 0.3 % (0.0-0.2) H Basophils # 0.0 10^3/uL (0.0-0.1) Eosinophil Count 0.1 10^3/uL (0.0-0.2) Prothrombin Time 12.1 SEC (9.8-11.9) H Prothrombin Time INR (Non-Therap) 1.2 PTT 25.9 SEC (24.67-30.72) Sodium Level 140 mmol/L (132-145) Potassium Level 3.9 mmol/L (3.6-5.2) Chloride Level 105.0 mmol/L (96-109) Carbon Dioxide Level 26.7 mmol/L (20.0-32) Anion Gap 12.2 Blood Urea Nitrogen 17 mg/dL (7-18) Creatinine 1.00 mg/dL (0.59-1.40) Estimated GFR () 89.4 (>/=60) BUN/Creatinine Ratio 17.0 Glucose Level 255 mg/dL (70-110) H Calcium Level 8.8 mg/dL (8.4-10.5) Total Bilirubin 0.1 mg/dL (0.2-1.0) L Aspartate Amino Transferase (AST) 19 U/L (0-35) Alanine Aminotransferase (ALT) 24 U/L (12-78) Alkaline Phosphatase 144 U/L (50-136) H Total Creatine Kinase 185 U/L (39-308) Troponin I < 0.02 ng/mL (0.00-0.05) Total Protein 7.4 g/dL (6.4-8.2) Albumin 3.8 g/dL (3.4-5.0) Globulin 3.6 Phenytoin (Dilantin) Level 36.0 ug/mL (10.0-20.0) H Serum Alcohol < 3 mg/dL (0-50) Consult/PCP Time Consult/PCP Called: 13:13 Consult/PCP: DR MATIAS Course Sepsis Screening Results: Posi: POSITIVE Sepsis Qualifier/Stage: SEPSIS RISK Duration or Total Time Spent w: 1 HR Vitals & review Data Vital Sign - Last 24 Hours 12/14/18 12/14/18 12/14/18 12/14/18 10:27 10:27 11:05 11:05 Temp 98.2 98.2 98.2 98.2 98.2 98.2 Pulse 73 73 73 Resp 16 16 16 16 B/P (MAP) 136/77 (96) Pulse Ox 99 99 O2 Delivery Nasal Canula Nasal Canula Laboratory Tests Test 12/14/18 12:10 White Blood Count 5.8 10^3/uL Red Blood Count 3.78 10^6/uL Hemoglobin 12.1 g/dL Hematocrit 34.4 % Mean Corpuscular Volume 91.0 fL Mean Corpuscular Hemoglobin 32.0 pg Mean Corpuscular Hemoglobin Concent 35.2 g/dL Red Cell Distribution Width 14.0 % Platelet Count 328 10^3/uL Mean Platelet Volume 9.0 fL Neutrophils (%) (Auto) 67.5 % Lymphocytes (%) (Auto) 19.7 % Monocytes (%) (Auto) 9.9 % Neutrophils # (Auto) 3.9 10^3/uL Lymphocytes # (Auto) 1.2 10^3/uL Monocytes # (Auto) 0.6 10^3/uL Absolute Immature Granulocyte (auto 0.01 10^3 u/L Immature Granulocytes % 0.20 % Eosinophils % 2.4 % Basophils % 0.3 % Basophils # 0.0 10^3/uL Eosinophil Count 0.1 10^3/uL Prothrombin Time 12.1 SEC Prothrombin Time INR (Non-Therap) 1.2 Activated Partial Thromboplast Time 25.9 SEC Sodium Level 140 mmol/L Potassium Level 3.9 mmol/L Chloride Level 105.0 mmol/L Carbon Dioxide Level 26.7 mmol/L Anion Gap 12.2 Blood Urea Nitrogen 17 mg/dL Creatinine 1.00 mg/dL Estimated GFR () 89.4 BUN/Creatinine Ratio 17.0 Glucose Level 255 mg/dL Calcium Level 8.8 mg/dL Total Bilirubin 0.1 mg/dL Aspartate Amino Transf (AST/SGOT) 19 U/L Alanine Aminotransferase (ALT/SGPT) 24 U/L Alkaline Phosphatase 144 U/L Total Creatine Kinase 185 U/L Troponin I < 0.02 ng/mL Total Protein 7.4 g/dL Albumin 3.8 g/dL Globulin 3.6 Phenytoin (Dilantin) Level 36.0 ug/mL Serum Alcohol < 3 mg/dL Sepsis Infection Criteria Pres: None LEVEL 1 SEPSIS INFECTION CRITE: Fever/Chills LEVEL 2-SIRS (LIST ALL THAT AP: Temp>101 Cardiovascular Evidence: Not Assessed or None Hematologic Evidence: None/Not assessed Hepatic Evidence: None/Not assessed Metabolic Evidence: None/Not assessed Neurological Evidence: Altered Mental Status Respiratory Evidence: None/Not assessed Renal Evidence: None/Not assessed O2 Sat by Pulse Oximetry: 99 Departure Time of Disposition: 13:33 Disposition: 01 HOME, SELF-CARE Impression: Primary Impression: Dilantin toxicity Additional Impression: Scalp laceration Condition: Improved Patient Instructions: Head Injury, Adult, [id number] Referrals: RICHY PIERRE MD (PCP) PRIMARY CARE PROVIDER Duration or Time Spent with Pa: 1 HR Problem Qualifiers CAROL STANFORD MD Dec 14, 2018 13:15
[2018-12-14 14:00] VITALS: BP 113/65
--- NOTE | 2018-12-14 15:08 | NUR ---
[facility] HERE TO TRANSPORT PT TO [facility].
--- NOTE | 2018-12-14 15:15 | NUR ---
REPORT REPORT TO LEX RIDDLE.
[2018-12-14 15:29] VITALS: BP 113/65
== END 2018-12-14 15:08 | disposition home or self-care (01) ==
LOC: ER 10:27 → EDBD 10:27 → ER 15:08
DX: S01.01XA Laceration without foreign body of scalp, initial encounter (principal); T42.0X5A Adverse effect of hydantoin derivatives, initial encounter; E78.00 Pure hypercholesterolemia, unspecified; Z79.899 Other long term (current) drug therapy; W19.XXXA Unspecified fall, initial encounter; Y93.89 Activity, other specified; Y92.098 Other place in other non-institutional residence as the place of occurrence of the external cause; Y99.8 Other external cause status
CPT/HCPCS: 12001; 36415; 70450; 71045; 80053; 80185; 82550; 84484; 85025; 85610; 85730; 93005; 96372; 99285; G0480; J1200; J2060; 80320; J1630